=== PATIENT | male | born 1935 | race Caucasian/White ===

== ENCOUNTER → 2017-05-21 08:03 | Outpatient (CLI) | payer MEDICARE, OTHER, SELFPAY | PROVIDERS: PCP Internal Medicine Adolescent Medicine; Visit Provider Internal Medicine Adolescent Medicine | DX: I48.91 Unspecified atrial fibrillation (principal); I10 Essential (primary) hypertension | CPT/HCPCS: 36415; 80053; 80061; 84153; 84443; 85025; 85610 ==

== ENCOUNTER → 2017-05-21 08:23 | Outpatient (POV) | payer MEDICARE, OTHER, SELFPAY ==
[2017-05-21 08:59] LABS: INR 1.31 (0.9-1.1); Prothrombin Time 14.2 seconds (9.4-11.8)
[2017-05-21 09:14] LABS: Basophils % 0.6 % (0.1-2.0); Eosinophils # 0.2 K/mm3 (0.0-0.4); Eosinophils % 4.2 % (0.1-12.0); Hematocrit 39.1 % (42.0-52.0); Hemoglobin 12.8 g/dL (14.1-18.0); Lymphocytes # 0.9 K/mm3 (0.7-4.5); Lymphocytes % 16.4 K/mm3 (10-50); Mean Corpuscular HGB Conc 32.8 g/dL (31.8-35.4); Mean Corpuscular Hemoglobin 30.9 pg (27.0-31.2); Mean Corpuscular Volume 94.2 fl (80-94); Mean Platelet Volume 7.7 fl (7.4-10.4); Monocytes # 0.3 K/mm3 (0.1-1.0); Monocytes % 6.4 % (1.7-9.3); Neutrophils # 3.8 K/mm3 (1.8-7.8); Neutrophils % 72.3 % (37.0-80.0); Platelet Count 212 K/mm3 (142-424); Red Blood Count 4.15 M/mm3 (4.60-6.20); Red Cell Distribution Width 13.5 % (11.5-17.5); White Blood Count 5.2 K/mm3 (4.8-10.8)
[2017-05-21 10:12] LABS: Alanine Aminotransferase 29 U/L (12-78); Albumin Level 3.4 gm/dL (3.4-5.0); Albumin/Globulin Ratio 1.1 (1.1-1.8); Alkaline Phosphatase 96 U/L (46-116); Anion Gap 9.3 mEq/L (5-15); Aspartate Amino Transferase 17 U/L (15-37); Bilirubin,Total 0.3 mg/dL (0.2-1.0); Blood Urea Nitrogen 17 mg/dL (7-18); Calcium 8.9 mg/dL (8.5-10.1); Carbon Dioxide 30 mmol/L (21.0-32.0); Chloride 104 mmol/L (98-107); Chol/HDL Ratio 3.8 (1-3.5); Cholesterol 200 mg/dL (140-200); Creatinine,Serum 0.93 mg/dL (0.70-1.30); Estimated Glomerular Filt Rate 78 ml/min (>60); GFR (African American) 94 ML/MIN (>60); Globulin 3.2 gm/dl (1.3-3.2); Glucose 132 mg/dL (74-106); HDL Cholesterol 53 mg/dL (27-67); LDL Cholesterol 86 mg/dL (0-130); Potassium 4.3 mmoL/L (3.5-5.1); Prostate Specific Ag, Diagnost 0 ng/mL (0.0-4.0); Sodium 139 mmol/L (136-145); Thyroid Stimulating Hormone 1.57 uIU/ml (0.358-3.740); Total Protein,Serum 6.6 gm/dL (6.4-8.2); Triglycerides 306 mg/dL (30-200); VLDL Cholesterol 61 mg/dL (0-40)
== END ==
PROVIDERS: Family Provider Internal Medicine Adolescent Medicine; PCP Internal Medicine Adolescent Medicine; Visit Provider Physician Assistant
DX: I48.91 Unspecified atrial fibrillation (principal); R97.20 Elevated prostate specific antigen [PSA]; I10 Essential (primary) hypertension
CPT/HCPCS: 36415; 80053; 80061; 84153; 84443; 85025; 85610

== ENCOUNTER → 2017-10-12 08:24 | Outpatient (CLI) | payer MEDICARE, OTHER, SELFPAY ==
--- NOTE | 2017-10-12 08:32 | XR_ITS ---
XR hand LT min 3V HISTORY: ITS.REASON: LEFT HAND PAIN ORDERING PHYSICIAN: Kameron Owusu MD PATIENT AGE: 82 years COMPARISON: None FINDINGS: No fracture or dislocation. No lytic or blastic change. There is normal mineralization.. Moderate to severe osteoarthritic changes are present at the first metacarpal phalangeal joint. Subcortical cystic changes are present at the proximal aspect of the proximal phalanx of the thumb. 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
[2017-10-12 10:00] LABS: Basophils % 0.3 % (0.1-2.0); Eosinophils # 0.2 K/mm3 (0.0-0.4); Eosinophils % 2.9 % (0.1-12.0); Hematocrit 45.8 % (42.0-52.0); Hemoglobin 14.2 g/dL (14.1-18.0); Lymphocytes # 0.8 K/mm3 (0.7-4.5); Lymphocytes % 14.4 K/mm3 (10-50); Mean Corpuscular HGB Conc 31.1 g/dL (31.8-35.4); Mean Corpuscular Hemoglobin 29.1 pg (27.0-31.2); Mean Corpuscular Volume 93.5 fl (80-94); Mean Platelet Volume 7.7 fl (7.4-10.4); Monocytes # 0.3 K/mm3 (0.1-1.0); Monocytes % 5.1 % (1.7-9.3); Neutrophils # 4.3 K/mm3 (1.8-7.8); Neutrophils % 77.3 % (37.0-80.0); Platelet Count 210 K/mm3 (142-424); Red Cell Distribution Width 13.8 % (11.5-17.5); White Blood Count 5.6 K/mm3 (4.8-10.8)
[2017-10-12 10:04] LABS: INR 1.49 (0.9-1.1); Prothrombin Time 15.2 seconds (9.4-11.8)
[2017-10-12 10:55] LABS: Alanine Aminotransferase 25 U/L (12-78); Albumin Level 3.6 gm/dL (3.4-5.0); Alkaline Phosphatase 99 U/L (46-116); Anion Gap 13.5 mEq/L (5-15); Aspartate Amino Transferase 17 U/L (15-37); Bilirubin,Total 0.3 mg/dL (0.2-1.0); Blood Urea Nitrogen 16 mg/dL (7-18); Calcium 9.1 mg/dL (8.5-10.1); Carbon Dioxide 27 mmol/L (21.0-32.0); Chloride 106 mmol/L (98-107); Chol/HDL Ratio 7.3 (1-3.5); Cholesterol 349 mg/dL (140-200); Creatinine,Serum 0.83 mg/dL (0.70-1.30); Estimated Glomerular Filt Rate 88 ml/min (>60); GFR (African American) 107 ML/MIN (>60); Globulin 3.5 gm/dl (1.3-3.2); Glucose 125 mg/dL (74-106); HDL Cholesterol 48 mg/dL (27-67); Potassium 4.5 mmoL/L (3.5-5.1); Sodium 142 mmol/L (136-145); Total Protein,Serum 7.1 gm/dL (6.4-8.2); Uric Acid 5.7 mg/dL (2.6-7.2)
[2017-10-12 11:00] LABS: Triglycerides 478 mg/dL (30-200)
[2017-10-12 11:43] LABS: Erythrocyte Sedimentation Rate 41 mm/hr (0-20)
== END ==
PROVIDERS: PCP Internal Medicine Adolescent Medicine; Visit Provider Internal Medicine Adolescent Medicine
DX: M79.642 Pain in left hand (principal); E78.5 Hyperlipidemia, unspecified; I48.91 Unspecified atrial fibrillation
CPT/HCPCS: 36415; 73130; 80053; 80061; 84550; 85025; 85610; 85651

== ENCOUNTER → 2017-11-09 11:40 | Outpatient (REF) | payer MEDICARE, OTHER, SELFPAY ==
[2017-11-09 14:22] LABS: INR 1.62 (0.9-1.1); Prothrombin Time 16.5 seconds (9.4-11.8)
== END ==
LOC: LAB.CARL 11:40
PROVIDERS: Visit Provider Internal Medicine Adolescent Medicine
DX: I48.91 Unspecified atrial fibrillation (principal)
CPT/HCPCS: 85610

== ENCOUNTER → 2018-01-17 09:29 | Outpatient (CLI) | payer MEDICARE, OTHER, SELFPAY ==
[2018-01-17 14:16] LABS: INR 1.17 (0.9-1.1)
== END ==
PROVIDERS: PCP Internal Medicine Adolescent Medicine; Visit Provider Internal Medicine Adolescent Medicine
DX: I48.91 Unspecified atrial fibrillation (principal)
CPT/HCPCS: 36415; 85610

== ENCOUNTER → 2018-01-25 09:52 | Outpatient (CLI) | payer MEDICARE, OTHER, SELFPAY ==
[2018-01-25 15:10] LABS: INR 1.96 (0.9-1.1); Prothrombin Time 19.8 seconds (9.4-11.8)
== END ==
PROVIDERS: PCP Internal Medicine Adolescent Medicine; Visit Provider Internal Medicine Adolescent Medicine
DX: I48.91 Unspecified atrial fibrillation (principal)
CPT/HCPCS: 36415; 85610

== ENCOUNTER → 2018-04-11 11:04 | Outpatient (CLI) | payer MEDICARE, OTHER, SELFPAY ==
[2018-04-11 14:03] LABS: Activated Partial Thrombo Time 33.3 seconds (23.6-34.0); INR 1.21 (0.9-1.1); Prothrombin Time 12.4 seconds (9.4-11.8)
== END ==
PROVIDERS: PCP Internal Medicine Adolescent Medicine; Visit Provider Internal Medicine Adolescent Medicine
DX: Z51.81 Encounter for therapeutic drug level monitoring (principal); Z79.01 Long term (current) use of anticoagulants; I48.91 Unspecified atrial fibrillation
CPT/HCPCS: 36415; 85610; 85730

== ENCOUNTER 2018-04-19 08:53 | Outpatient (CLI) | payer MEDICARE, OTHER, SELFPAY ==
[2018-04-19 11:18] LABS: PHA INR Fingerstick 1.6 (0.9-1.1)
== END 2018-04-19 11:19 | disposition home or self-care (01) ==
LOC: ACC 08:55
PROVIDERS: PCP Internal Medicine Adolescent Medicine; Visit Provider Internal Medicine Adolescent Medicine
DX: Z51.81 Encounter for therapeutic drug level monitoring (principal); Z79.01 Long term (current) use of anticoagulants
CPT/HCPCS: 85610; 99211; G0463

== ENCOUNTER 2018-05-17 09:31 | Outpatient (CLI) | payer MEDICARE, OTHER, SELFPAY | END 2018-05-17 14:25 | disposition home or self-care (01) | LOC: ACC 09:36 | PROVIDERS: PCP Internal Medicine Adolescent Medicine; Visit Provider Internal Medicine Adolescent Medicine | DX: Z51.81 Encounter for therapeutic drug level monitoring (principal); Z79.01 Long term (current) use of anticoagulants; I48.91 Unspecified atrial fibrillation | CPT/HCPCS: 85610; 99211; G0463 ==

== ENCOUNTER 2018-06-28 09:37 | Outpatient (CLI) | payer MEDICARE, OTHER, SELFPAY ==
[2018-06-28 10:32] LABS: INR 1.17 (0.9-1.1)
[2018-06-28 14:56] LABS: PHA INR Fingerstick 1.3 (0.9-1.1)
== END 2018-06-28 14:58 | disposition home or self-care (01) ==
LOC: ACC 09:38
PROVIDERS: PCP Internal Medicine Adolescent Medicine; Visit Provider Internal Medicine Adolescent Medicine
DX: Z51.81 Encounter for therapeutic drug level monitoring (principal); Z79.01 Long term (current) use of anticoagulants; I48.91 Unspecified atrial fibrillation
CPT/HCPCS: 36415; 85610; 99211; G0463

== ENCOUNTER → 2018-07-02 12:36 | Outpatient (CLI) | payer MEDICARE, OTHER, SELFPAY ==
--- NOTE | 2018-07-02 12:53 | XR_ITS ---
XR chest 2V HISTORY: ITS.REASON: x ORDERING PHYSICIAN: GRECIA Doty PATIENT AGE: 82 years COMPARISON: PA and lateral chest 06/07/2015 FINDINGS: The lung [place] are well expanded and appear clear of infiltrate. There is moderate aortic tortuosity but no cardiomegaly. There is a left-sided cardiac pacemaker and dual chamber electrodes both in good position. Again noted are multiple surgical clips in right axilla. There is mild generalized osteopenia the thoracic spine with mild degenerative changes. IMPRESSION: Nonacute chest findings
[2018-07-02 13:13] LABS: INR 1.62 (0.9-1.1); Prothrombin Time 16.5 seconds (9.4-11.8)
[2018-07-02 14:19] LABS: Alanine Aminotransferase 24 U/L (12-78); Albumin Level 3.8 gm/dL (3.4-5.0); Alkaline Phosphatase 93 U/L (46-116); Aspartate Amino Transferase 15 U/L (15-37); Bilirubin,Direct 0.1 mg/dL (0.0-0.2); Bilirubin,Indirect 0.2 mg/dL (0.0-0.9); Bilirubin,Total 0.3 mg/dL (0.2-1.0); Free T4 (Free Thyroxine) 1.02 ng/dl (0.76-1.46); Thyroid Stimulating Hormone 1.29 uIU/ml (0.358-3.740); Total Protein,Serum 7.4 gm/dL (6.4-8.2)
== END ==
PROVIDERS: PCP Internal Medicine Adolescent Medicine; Visit Provider Physician Assistant
DX: E78.5 Hyperlipidemia, unspecified (principal); I45.10 Unspecified right bundle-branch block; I48.91 Unspecified atrial fibrillation; Z51.81 Encounter for therapeutic drug level monitoring; Z79.01 Long term (current) use of anticoagulants
CPT/HCPCS: 36415; 71046; 80076; 84439; 84443; 85610

== ENCOUNTER → 2018-07-08 13:45 | Outpatient (CLI) | payer MEDICARE, OTHER, SELFPAY ==
--- NOTE | 2018-07-08 13:47 | CA_ITS ---
PROCEDURE: 2-D M-mode and color Doppler study INDICATIONS FOR THE TEST: Chest pain COPD Heart Murmur Tobacco Smoking Palpitations Fatigue Syncope Edema Hypertension+Diabetes Mellitus Rheumatic Fever SOB+CARBAJAL Obesity Hyperlipidemia+ Family History HD Additional History a-fib,pacer,rbbb PATIENT INFORMATION HEIGHT: 68 WEIGHT:201 GENDER: Male B/P:170/87 2-D/M-MODE INTERPRETATION: 2-D MEASUREMENTS OBSERVED VALUES IN CMS Right Ventricular Dimension (RVDd) 2.0 Interventricular Septum (Thickness)(IVsd) 1.2 Left Ventricular Internal Dimensions(LVIDd) 5.9 Left Ventricular Posterior Wall (Thickness)(LVPWd) 1.0 Aortic Root 2.5 Aortic Cusp Separation 2.1 Left Atrial Dimensions (LAD) 4.8 2D 1. Left atrium is moderately enlarged, left ventricle is normal size, mild concentric left ventricular hypertrophy, visually estimated ejection fraction 50% with no regional wall motion abnormality. 2. The right atrium and right ventricle are qualitatively moderately enlarged, there is a pacemaker lead seen in the right ventricle, contractility of the right ventricle is normal. 3. The aortic valve is minimally thickened and fibrosed. 4. The mitral and tricuspid valve leaflets are minimally thickened 5. The pulmonic valve is poorly present. 6. No significant pericardial effusion noted. DOPPLER INTERROGATION: Doppler interrogation of the aortic, mitral and tricuspid valvular presence of mild mitral and tricuspid regurgitation, tricuspid regurgitation jet velocity is inadequate for calculation of the right ventricular systolic pressure, diastolic parameters are inconclusive CONCLUSION: 1. Moderate biatrial enlargement, normal left ventricular size, mild concentric left ventricular hypertrophy, visually estimated ejection fraction approximately 50% with no regional wall motion abnormality. 2. Moderately enlarged right ventricle with normal contractility. 3. Mild mitral and tricuspid regurgitation 4. No significant pericardial effusion noted.
== END ==
PROVIDERS: PCP Internal Medicine Adolescent Medicine; Visit Provider Physician Assistant
DX: I25.10 Atherosclerotic heart disease of native coronary artery without angina pectoris (principal)
CPT/HCPCS: 93306

== ENCOUNTER 2018-07-24 09:45 | Outpatient (CLI) | payer MEDICARE, OTHER, SELFPAY ==
[2018-07-24 14:07] LABS: PHA INR Fingerstick 2.7 (0.9-1.1)
== END 2018-07-24 14:09 | disposition home or self-care (01) ==
LOC: ACC 09:46
PROVIDERS: PCP Internal Medicine Adolescent Medicine; Visit Provider Internal Medicine Adolescent Medicine
DX: Z51.81 Encounter for therapeutic drug level monitoring (principal); Z79.01 Long term (current) use of anticoagulants; I48.91 Unspecified atrial fibrillation
CPT/HCPCS: 85610; 99211; G0463

== ENCOUNTER 2018-08-14 09:23 | Outpatient (CLI) | payer MEDICARE, OTHER, SELFPAY ==
[2018-08-14 12:07] LABS: PHA INR Fingerstick 2.4 (0.9-1.1)
== END 2018-08-14 14:59 | disposition home or self-care (01) ==
LOC: ACC 09:24
PROVIDERS: PCP Internal Medicine Adolescent Medicine; Visit Provider Internal Medicine Adolescent Medicine
DX: Z51.81 Encounter for therapeutic drug level monitoring (principal); Z79.01 Long term (current) use of anticoagulants; I48.91 Unspecified atrial fibrillation
CPT/HCPCS: 85610; 99211; G0463

== ENCOUNTER 2018-09-25 09:36 | Outpatient (CLI) | payer MEDICARE, OTHER, SELFPAY ==
[2018-09-25 11:37] LABS: PHA INR Fingerstick 1.9 (0.9-1.1)
== END 2018-09-25 11:39 | disposition home or self-care (01) ==
LOC: ACC 09:37
PROVIDERS: PCP Internal Medicine Adolescent Medicine; Visit Provider Internal Medicine Adolescent Medicine
DX: Z51.81 Encounter for therapeutic drug level monitoring (principal); Z79.01 Long term (current) use of anticoagulants; I48.91 Unspecified atrial fibrillation
CPT/HCPCS: 85610; 99211; G0463

== ENCOUNTER → 2018-10-10 11:34 | Outpatient (CLI) | payer MEDICARE, OTHER, SELFPAY ==
--- NOTE | 2018-10-10 11:49 | XR_ITS ---
XR elbow RT min 3V HISTORY: ITS.REASON: RIGHT ELBOW PAIN ORDERING PHYSICIAN: Saroj Ayoub MD PATIENT AGE: 83 years COMPARISON: None FINDINGS: No acute fracture or dislocation is evident. There is some soft tissue calcification along the lateral epicondylar region which could be result of old injury. Soft tissue swelling is present along the medial epicondyle and posterior distal humerus area. No displaced fat pads are apparent. IMPRESSION: Soft tissue swelling along the medial and posterior aspect of the distal humerus which could be inflammatory/infectious or related to bursitis.
[2018-10-10 11:56] LABS: Basophils % 0.4 % (0.1-2.0); Eosinophils # 0.5 K/mm3 (0.0-0.4); Eosinophils % 7.2 % (0.1-12.0); Hematocrit 37.1 % (42.0-52.0); Hemoglobin 11.7 g/dL (14.1-18.0); Mean Corpuscular HGB Conc 31.5 g/dL (31.8-35.4); Mean Corpuscular Volume 91.9 fl (80-94); Mean Platelet Volume 8.9 fl (7.4-10.4); Monocytes # 0.6 K/mm3 (0.1-1.0); Monocytes % 7.9 % (1.7-9.3); Neutrophils # 5.1 K/mm3 (1.8-7.8); Neutrophils % 70.5 % (37.0-80.0); Platelet Count 217 K/mm3 (142-424); Red Blood Count 4.03 M/mm3 (4.60-6.20); Red Cell Distribution Width 13.6 % (11.5-17.5); White Blood Count 7.2 K/mm3 (4.8-10.8)
[2018-10-10 15:41] LABS: Alanine Aminotransferase 22 U/L (12-78); Albumin Level 3.1 gm/dL (3.4-5.0); Albumin/Globulin Ratio 0.9 (1.1-1.8); Alkaline Phosphatase 93 U/L (46-116); Aspartate Amino Transferase 19 U/L (15-37); Bilirubin,Total 0.3 mg/dL (0.2-1.0); Blood Urea Nitrogen 24 mg/dL (7-18); Calcium 8.6 mg/dL (8.5-10.1); Carbon Dioxide 25 mmol/L (21.0-32.0); Chloride 105 mmol/L (98-107); Creatinine,Serum 0.86 mg/dL (0.70-1.30); Estimated Glomerular Filt Rate 85 ml/min (>60); GFR (African American) 103 ML/MIN (>60); Globulin 3.3 gm/dl (1.3-3.2); Glucose 95 mg/dL (74-106); Sodium 141 mmol/L (136-145); Total Protein,Serum 6.4 gm/dL (6.4-8.2); Uric Acid 6.3 mg/dL (2.6-7.2)
[2018-10-10 16:56] LABS: Erythrocyte Sedimentation Rate 64 mm/hr (0-20)
== END ==
PROVIDERS: Visit Provider Internal Medicine Adolescent Medicine
DX: M25.521 Pain in right elbow (principal)
CPT/HCPCS: 36415; 73080; 80053; 84550; 85025; 85651

== ENCOUNTER 2018-10-23 09:31 | Outpatient (CLI) | payer MEDICARE, OTHER, SELFPAY ==
[2018-10-23 16:08] LABS: PHA INR Fingerstick 1.9 (0.9-1.1)
== END 2018-10-23 16:10 | disposition home or self-care (01) ==
LOC: ACC 09:33
PROVIDERS: PCP Internal Medicine Adolescent Medicine; Visit Provider Internal Medicine Adolescent Medicine
DX: Z51.81 Encounter for therapeutic drug level monitoring (principal); Z79.01 Long term (current) use of anticoagulants; I48.91 Unspecified atrial fibrillation
CPT/HCPCS: 85610; 99211; G0463

== ENCOUNTER 2018-11-19 08:54 | Outpatient (CLI) | payer MEDICARE, OTHER, SELFPAY ==
[2018-11-19 14:38] LABS: PHA INR Fingerstick 1.8 (0.9-1.1)
== END 2018-11-19 14:41 | disposition home or self-care (01) ==
LOC: ACC 08:55
PROVIDERS: PCP Internal Medicine Adolescent Medicine; Visit Provider Internal Medicine Adolescent Medicine
DX: Z51.81 Encounter for therapeutic drug level monitoring (principal); Z79.01 Long term (current) use of anticoagulants; I48.91 Unspecified atrial fibrillation
CPT/HCPCS: 85610; 99211; G0463

== ENCOUNTER 2018-11-20 09:00 | Outpatient (RCR) | payer MEDICARE, OTHER, SELFPAY ==
--- NOTE | 2018-10-22 12:11 | HMH.PTOPEV ---
PT Outpatient Evaluation Rehab PT Outpatient Evaluation Start: 10/22/18 09:55 Freq: Status: Active Protocol: Document 10/22/18 10:46 PDESEROUX (Rec: 10/22/18 12:11 [email or web address] [id number]) Electronically Signed By Nithin Lim, PT 10/22/18 10:46 Outpatient Therapy Subjective History Subjective History Pt. is a 83 year old male who presents to outpatient PT for complaints of subacute RUE pain(most severe in elbow) for 2 months of insidious onset. Pt. reports having gout 5 years ago in the same elbow that had sympom relief with the medications he was taking. Pt. reports having an X-ray of his R elbow, but no injections . Pt. reports worse pain in his elbow, but the pain travels up to my shoulder and down to my hand. Current medications include Ranitidine , Carvedilol, Dicyclonine, Furosemide, Finasteride, Amiodarone, Donepizil, Simvastatin, Warfarin, and Tamsulosin. PMH includes pacemaker and cardiac catheterizations. Chief Complaint Pain Symptom Type Ache,Dull,Shooting Symptoms Relieved By Rest/Positioning,OTC Meds Symptoms Aggravated By Lifting Prior Functional Limitations None Current Functional Limitations Reaching,Lifting,Housework, Dressing,Driving Symptom Description Constant but Variable Level of pain today (0-10) 3 Pain scale - at its best (0-10) 2 Pain scale - at its worst (0-10) 6 Cervical Eval Posture Head/C-Spine Posture Sitting Position Flexed,C-Spine Flattened Head/C-Spine Posture Standing Position Flexed,C-Spine Flattened Passive Joint Mobility Cervical PIVM Dec: R OA L OA R AA L AA R C2/3 L C2/3 R C3/4 L C3/4 R C4/5 L C4/5 R C5/6 L C5/6
== END 2018-12-04 11:31 | disposition home or self-care (01) ==
LOC: PT.CARL 09:00
PROVIDERS: Visit Provider Internal Medicine Adolescent Medicine
DX: M25.521 Pain in right elbow (principal)
CPT/HCPCS: 97012; 97035; 97110; 97140; 97163

== ENCOUNTER 2018-12-11 09:30 | Outpatient (CLI) | payer MEDICARE, OTHER, SELFPAY | END 2018-12-11 14:01 | disposition home or self-care (01) | LOC: ACC 09:31 | PROVIDERS: PCP Internal Medicine Adolescent Medicine; Visit Provider Internal Medicine Adolescent Medicine | DX: Z51.81 Encounter for therapeutic drug level monitoring (principal); Z79.01 Long term (current) use of anticoagulants; I48.91 Unspecified atrial fibrillation | CPT/HCPCS: 85610; 99211; G0463 ==

== ENCOUNTER 2019-01-08 09:26 | Outpatient (CLI) | payer MEDICARE, OTHER, SELFPAY | END 2019-01-08 15:33 | disposition home or self-care (01) | LOC: ACC 09:27 | PROVIDERS: PCP Internal Medicine Adolescent Medicine; Visit Provider Internal Medicine Adolescent Medicine | DX: Z51.81 Encounter for therapeutic drug level monitoring (principal); Z79.01 Long term (current) use of anticoagulants; I48.91 Unspecified atrial fibrillation | CPT/HCPCS: 85610; 99211; G0463 ==

== ENCOUNTER → 2019-01-14 12:22 | Outpatient (CLI) | payer MEDICARE, OTHER, SELFPAY ==
[2019-01-14 14:01] LABS: Alanine Aminotransferase 24 U/L (12-78); Albumin Level 3.4 gm/dL (3.4-5.0); Alkaline Phosphatase 93 U/L (46-116); Aspartate Amino Transferase 17 U/L (15-37); Bilirubin,Direct 0.1 mg/dL (0.0-0.2); Bilirubin,Indirect 0.2 mg/dL (0.0-0.9); Bilirubin,Total 0.3 mg/dL (0.2-1.0); Free Thyroxine Index 3.2 ug/dL (5.93-13.13); T4 (Thyroxine) 8.8 ug/dl (4.7-13.3); Thyroid Stimulating Hormone 1.07 uIU/ml (0.358-3.740); Total Protein,Serum 6.9 gm/dL (6.4-8.2); Triiodothryronine (T3) Uptake 36 % (31-39)
== END ==
PROVIDERS: Visit Provider Urology
DX: E78.5 Hyperlipidemia, unspecified (principal); I45.10 Unspecified right bundle-branch block; I48.91 Unspecified atrial fibrillation; R06.02 Shortness of breath; R07.9 Chest pain, unspecified; Z79.01 Long term (current) use of anticoagulants; Z79.899 Other long term (current) drug therapy
CPT/HCPCS: 36415; 80076; 84436; 84443; 84479

== ENCOUNTER → 2019-01-21 10:47 | Outpatient (CLI) | payer MEDICARE, OTHER, SELFPAY ==
--- NOTE | 2019-01-21 | CA_ITS ---
APPROVED REPORT Exam: Pharmacologic Technologist: eDb Campuzano Ht: 5 ft 8 in Wt: 200 lbs BSA: 2.04 m2 HR: 70 bpm BP: 173/90 mmHg Indications: Chest pain Medical History Medications: Amiodarone,,,,, Furosemide (LASIX),,,,, Warfarin,,,,, Simvastatin,,,,, Ranitidine,,,,, Carvedilol,,,,, TAMSULOSIN,,,,, DONEPEZIL,,,,, Finasteride,,,,, Dcyclomine,,,,, Stress Test Details Test: LEXISCAN HR Resting HR: 70 bpm Max Heart Rate (APMHR): 136 bpm Max HR Achieved: 74 bpm Target HR (85% APMHR): 115 bpm % of APMHR: 54 Recovery HR: 70 bpm BP Resting BP: 173.0/90.0 mmHg Max BP: 199.0/87.0 mmHg Recovery BP: 149.0/75.0 mmHg ECG Clinical Exercise duration: 04:00 min Highest Stage Achieved: Stress ECG Conclusion Resting ECG: Normal sinus rhythm, right bundle branch block, first degree AV block. Symptoms: Malaise, mild nausea. No chest pain. Arrhythmias/Ectopy: None ST-T Changes: No significant changes. Conclusion: Unremarkable Lexiscan stress. Myoview images reported separately. Electronically signed by : Sunny Baldwin, 01/22/2019 15:05:16
--- NOTE | 2019-01-21 10:49 | NM_ITS ---
APPROVED REPORT Exam: Nuclear Stress Test Indication: Chest pain, HTN, High cholesterol, Family history, Pacemaker Patient Location: Outpatient Stress Tech: Deb Campuzano DC Tech:Hienwayne Khoury, MCKAYT, RT (R)(N) Ht: 5 ft 8 in Wt: 200 lbs HR: 70 bpm BP: 173/90 mmHg BSA: 2.04 m2 BMI: 30.4 History: Chest pain, HTN, High cholesterol, Family history, Pacemaker Procedure: Patient received a 0.4 mg of intravenous Lexiscan, resting heart rate 70 bpm, resting blood pressure 173/90 mmHg, with Lexiscan maximum heart rate achived was 71 bpm which is % of the maximum predicted heart rate and blood pressure was 123/58 mmHg. With Lexiscan, patient denied any complaint of chest pain. Cardiac Stress and Resting SPECT Images: Cardiac Stress and Resting SPECT images were obtained using technetium 99m Myoview 32.5 mCi stress and 10.92 mCi at rest. Ejection fraction is 48%. There is global hypokinesia. There is a fixed defect involving the inferior wall and inferolateral area extending to the apex in the inferolateral area. There is a small fixed defect in the apical septal area. Conclusion: Low ejection fraction of 48% with global hypokinesia Fixed defect in the inferior wall, inferolateral wall extending into the apex, and small fixed defect in the apical septal area consistent with infarction No reversible defects evident Electronically signed by : Britton Mcclellan MD 01/22/2019 09:41:19
--- NOTE | 2019-01-21 11:07 | HMH.ITSHM ---
Current Home Medications as stated by this patient Hernando Rivera JR or tax compliance representative. []WARFARIN TAMSULOSIN SIMVASTATIN RANITIDINE FUROSEMIDE FINASTERIDE DONEPEZIL DICYCLOMINE CARVEDILOL AMIODARONE
== END ==
PROVIDERS: PCP Internal Medicine Adolescent Medicine; Visit Provider Urology
DX: R07.9 Chest pain, unspecified; R06.02 Shortness of breath; E78.2 Mixed hyperlipidemia; I45.10 Unspecified right bundle-branch block; Z79.01 Long term (current) use of anticoagulants; Z79.899 Other long term (current) drug therapy
CPT/HCPCS: 78452; 93017; A9502; J2785

== ENCOUNTER → 2019-02-04 12:44 | Outpatient (CLI) | payer MEDICARE, OTHER, SELFPAY ==
--- NOTE | 2019-02-04 12:51 | XR_ITS ---
PROCEDURE: XR CHEST 2V CLINICAL HISTORY: amiodarone therapy. Follow-up amiodarone on therapy, previous smoker, heart disease COMPARISON: CXR CHEST(2 VIEWS-NOT PORTABLE) from 02/09/2015 CXR CHEST(2 VIEWS-NOT PORTABLE) from 06/07/2015 CXR2V XR chest 2V from 07/02/2018 FINDINGS: Bipolar pacemaker is present from left subclavian approach. Normal heart size. Coronary artery stent noted Minimal atelectatic or fibrotic change in the left lung base. The remaining lungs are clear. Surgical clips are present in the right axillary region. No acute bony abnormalities. IMPRESSION: No acute finding. No convincing evidence of amiodarone lung toxicity Dictated by: Britton Mcclellan MD 02/04/2019 13:43 Electronically signed by Britton Mcclellan MD in [place] 02/04/2019 13:43
== END ==
PROVIDERS: PCP Internal Medicine Adolescent Medicine; Visit Provider Internal Medicine
DX: E78.5 Hyperlipidemia, unspecified (principal); I45.10 Unspecified right bundle-branch block; I48.91 Unspecified atrial fibrillation; R06.02 Shortness of breath; R07.9 Chest pain, unspecified; R94.31 Abnormal electrocardiogram [ECG] [EKG]; Z79.01 Long term (current) use of anticoagulants; Z79.899 Other long term (current) drug therapy
CPT/HCPCS: 71046

== ENCOUNTER 2019-02-05 09:30 | Outpatient (CLI) | payer MEDICARE, OTHER, SELFPAY ==
[2019-02-05 10:14] LABS: PHA INR Fingerstick 2.3 (0.9-1.1)
== END 2019-02-05 10:17 | disposition home or self-care (01) ==
LOC: ACC 09:32
PROVIDERS: PCP Internal Medicine Adolescent Medicine; Visit Provider Internal Medicine Adolescent Medicine
DX: Z51.81 Encounter for therapeutic drug level monitoring (principal); Z79.01 Long term (current) use of anticoagulants; I48.91 Unspecified atrial fibrillation
CPT/HCPCS: 85610; 99211; G0463

== ENCOUNTER 2019-03-19 09:23 | Outpatient (CLI) | payer MEDICARE, OTHER, SELFPAY ==
[2019-03-19 10:23] LABS: PHA INR Fingerstick 2.6 (0.9-1.1)
== END 2019-03-19 10:25 | disposition home or self-care (01) ==
LOC: ACC 09:24
PROVIDERS: PCP Internal Medicine Adolescent Medicine; Visit Provider Internal Medicine Adolescent Medicine
DX: Z51.81 Encounter for therapeutic drug level monitoring (principal); Z79.01 Long term (current) use of anticoagulants
CPT/HCPCS: 85610; 99211; G0463

== ENCOUNTER 2019-04-30 08:48 | Outpatient (CLI) | payer MEDICARE, OTHER, SELFPAY | END 2019-04-30 11:09 | disposition home or self-care (01) | LOC: ACC 08:48 | PROVIDERS: PCP Internal Medicine Adolescent Medicine; Visit Provider Internal Medicine Adolescent Medicine | DX: Z51.81 Encounter for therapeutic drug level monitoring (principal); Z79.01 Long term (current) use of anticoagulants; I48.91 Unspecified atrial fibrillation | CPT/HCPCS: 85610; 99211; G0463 ==

== ENCOUNTER 2019-06-11 08:52 | Outpatient (CLI) | payer MEDICARE, OTHER, SELFPAY ==
[2019-06-11 11:58] LABS: PHA INR Fingerstick 1.7 (0.9-1.1)
== END 2019-06-11 12:08 | disposition home or self-care (01) ==
LOC: ACC 08:55
PROVIDERS: PCP Internal Medicine Adolescent Medicine; Visit Provider Internal Medicine Adolescent Medicine
DX: Z79.01 Long term (current) use of anticoagulants (principal); I48.91 Unspecified atrial fibrillation; Z51.81 Encounter for therapeutic drug level monitoring
CPT/HCPCS: 85610; 99211; G0463

== ENCOUNTER 2019-07-21 08:59 | Outpatient (CLI) | payer MEDICARE, OTHER, SELFPAY ==
[2019-07-21 10:49] LABS: PHA INR Fingerstick 1.7 (0.9-1.1)
== END 2019-07-21 10:51 | disposition home or self-care (01) ==
LOC: ACC 08:59
PROVIDERS: PCP Internal Medicine Adolescent Medicine; Visit Provider Internal Medicine Adolescent Medicine
DX: Z51.81 Encounter for therapeutic drug level monitoring (principal); Z79.01 Long term (current) use of anticoagulants; I48.91 Unspecified atrial fibrillation
CPT/HCPCS: 85610; 99211; G0463

== ENCOUNTER 2019-08-11 14:05 | Outpatient (CLI) | payer MEDICARE, OTHER, SELFPAY ==
[2019-08-11 14:27] LABS: PHA INR Fingerstick 2.8 (0.9-1.1)
== END 2019-08-11 14:30 | disposition home or self-care (01) ==
LOC: ACC 14:07
PROVIDERS: PCP Internal Medicine Adolescent Medicine; Visit Provider Internal Medicine Adolescent Medicine
DX: Z79.01 Long term (current) use of anticoagulants (principal)
CPT/HCPCS: 85610; 99211; G0463

== ENCOUNTER → 2019-08-11 15:24 | Outpatient (CLI) | payer MEDICARE, OTHER, SELFPAY ==
[2019-08-11 18:19] LABS: Prostate Specific Ag, Diagnost < 0.064 ng/ml (0.0-4.0)
== END ==
PROVIDERS: Visit Provider Urology
DX: C61 Malignant neoplasm of prostate (principal); Z51.81 Encounter for therapeutic drug level monitoring; Z79.01 Long term (current) use of anticoagulants
CPT/HCPCS: 36415; 84153; 85610; 99211; G0463

== ENCOUNTER 2019-09-15 09:28 | Outpatient (CLI) | payer MEDICARE, OTHER, SELFPAY ==
[2019-09-15 10:07] LABS: PHA INR Fingerstick 2.2 (0.9-1.1)
== END 2019-09-15 10:25 | disposition home or self-care (01) ==
LOC: ACC 09:31
PROVIDERS: PCP Internal Medicine Adolescent Medicine; Visit Provider Internal Medicine Adolescent Medicine
DX: Z51.81 Encounter for therapeutic drug level monitoring (principal); Z79.01 Long term (current) use of anticoagulants; I48.91 Unspecified atrial fibrillation
CPT/HCPCS: 85610; 99211; G0463

== ENCOUNTER 2019-10-27 08:58 | Outpatient (CLI) | payer MEDICARE, OTHER, SELFPAY ==
[2019-10-27 10:28] LABS: PHA INR Fingerstick 2.9 (0.9-1.1)
== END 2019-10-27 12:02 | disposition home or self-care (01) ==
PROVIDERS: PCP Internal Medicine Adolescent Medicine; Visit Provider Internal Medicine Adolescent Medicine
DX: Z51.81 Encounter for therapeutic drug level monitoring (principal); Z79.01 Long term (current) use of anticoagulants; I48.91 Unspecified atrial fibrillation
CPT/HCPCS: 85610; 99211; G0463

== ENCOUNTER → 2019-11-03 13:46 | Outpatient (CLI) | payer MEDICARE, OTHER, SELFPAY ==
--- NOTE | 2019-11-03 13:59 | XR_ITS ---
PROCEDURE: XR CHEST 2V CLINICAL HISTORY: amiodarone therapy Heart disease COMPARISON: CXR CHEST(2 VIEWS-NOT PORTABLE) from 06/07/2015 CXR2V XR chest 2V from 07/02/2018 XR CHEST 2V from 02/04/2019 FINDINGS: Normal heart size. Bipolar pacemaker is present from left subclavian approach. There is mild tortuosity of the descending thoracic aorta. The lungs are clear without infiltrates, suspicious nodules, or pleural effusions. Surgical clips are present in the right axillary region. Degenerative changes thoracic spine IMPRESSION: No change with no acute finding Dictated by: Britton Mcclellan MD 11/03/2019 14:22 Electronically signed by Britton Mcclellan MD in [facility] 11/03/2019 14:22
[2019-11-03 14:51] LABS: Alanine Aminotransferase 21 U/L (12-78); Alkaline Phosphatase 102 U/L (38-126); Aspartate Amino Transferase 27 U/L (17-59); Bilirubin,Direct 0.1 mg/dl (0.0-0.4); Bilirubin,Indirect 0.3 mg/dL (0.0-0.9); Bilirubin,Total 0.4 mg/dl (0.2-1.3); Bilirubin,Unconjugated 0.3 mg/dL (0.0-1.1); Total Protein,Serum 7.1 g/dl (6.3-8.2)
[2019-11-03 15:09] LABS: Free T4 (Free Thyroxine) 1.29 ng/dl (0.78-2.19)
[2019-11-03 15:23] LABS: Thyroid Stimulating Hormone 1.54 uIU/mL (0.465-4.68)
== END ==
PROVIDERS: Visit Provider Urology
DX: E78.5 Hyperlipidemia, unspecified (principal); I48.91 Unspecified atrial fibrillation; Z79.01 Long term (current) use of anticoagulants; Z79.899 Other long term (current) drug therapy; Z95.0 Presence of cardiac pacemaker
CPT/HCPCS: 36415; 71046; 80076; 84439; 84443

== ENCOUNTER 2019-12-10 08:59 | Outpatient (CLI) | payer MEDICARE, OTHER, SELFPAY | END 2019-12-10 10:47 | disposition home or self-care (01) | LOC: ACC 09:00 | PROVIDERS: PCP Internal Medicine Adolescent Medicine; Visit Provider Internal Medicine Adolescent Medicine | DX: Z79.01 Long term (current) use of anticoagulants (principal) | CPT/HCPCS: 85610; 99211; G0463 ==

== ENCOUNTER 2020-01-19 09:00 | Outpatient (RCR) | payer MEDICARE, OTHER, SELFPAY ==
--- NOTE | 2019-12-22 10:13 | HMH.PTOPEV ---
PT Outpatient Evaluation Rehab PT Outpatient Evaluation Start: 12/22/19 09:26 Freq: Status: Active Protocol: Document 12/22/19 09:26 PDESEROUX (Rec: 12/22/19 10:12 [email or web address] [id number]) Electronically Signed By Nithin Lim, [facility] 12/22/19 09:26 Outpatient Therapy Subjective History Subjective History Pt. is a 84 year old male who presents to Outpatient PT clinic w/ complaints of chronic and activtiy dependent LB and bilateral anterior thigh P! of insidious onset for 1 month. Pt. reports symptoms( tenderness ache) in LB worsen w/ standing and washing the dishes. Pt. reports symptoms( burning) in BLE anterior thigh worsen w/ walking his dog, but states this symptom has improved. Pt. denies having injections nor recent diagnostic imaging for current pathology. Pt. denies symptoms in BLE radiating inferiorly to knees. Current medications include Tamsulosin , Furosemide, Dicyclomine, Amiodarone, Finasteride, Carvedilol, Warfarin, Domeprazil, Melatonin, and Loperamide. PMH includes Tonsillectomy, Lymphectomy(L axilla), Appendectomy, Hypertension, Hyperlipidemia, Pacemaker, hx. of Prostate cancer. Chief Complaint Pain,Weakness Symptom Type Ache,Burning Symptoms Relieved By Rest/Positioning Symptoms Aggravated By Standing,Physical Activity, Walking Prior Functional Limitations None Current Functional Limitations Housework,Standing,Squatting, Recreation Activity,Walking Symptom Description Activity Dependent Level of pain today (0-10) 0 Pain scale - at its best (0-10) 0 Pain scale - at its worst (0-10) 3 Lumbopelvic Eval Posture Thoracic Spine Posture Standing Position Increased Kyphosis Lumbar Spine Posture Standing Position Flattened Assistive device Assistive Devices None / NA Gait Observation General Gait Pattern Observation No Deviations/Normal Palapation tenderness bila
== END 2020-02-02 11:00 | disposition home or self-care (01) ==
LOC: PT.CARL 09:00
PROVIDERS: PCP Internal Medicine Adolescent Medicine; Visit Provider Nurse Practitioner Family
DX: M54.5 Low back pain (principal); M62.81 Muscle weakness (generalized); G89.29 Other chronic pain
CPT/HCPCS: 97110; 97163

== ENCOUNTER → 2020-02-19 16:04 | Outpatient (CLI) | payer MEDICARE, OTHER, SELFPAY ==
[2020-02-19 19:07] LABS: Prostate Specific Ag, Diagnost < 0.064 ng/ml (0.0-4.0)
== END ==
PROVIDERS: Visit Provider Urology
DX: C61 Malignant neoplasm of prostate (principal)
CPT/HCPCS: 36415; 84153

== ENCOUNTER 2020-04-19 09:08 | Outpatient (CLI) | payer MEDICARE, OTHER, SELFPAY ==
[2020-04-19 10:27] LABS: PHA INR Fingerstick 1.5 (0.9-1.1)
== END 2020-04-19 10:29 | disposition home or self-care (01) ==
LOC: ACC 09:10
PROVIDERS: PCP Internal Medicine Adolescent Medicine; Visit Provider Internal Medicine Adolescent Medicine
DX: Z51.81 Encounter for therapeutic drug level monitoring (principal); Z79.01 Long term (current) use of anticoagulants; I48.91 Unspecified atrial fibrillation
CPT/HCPCS: 85610; 99211; G0463

== ENCOUNTER 2020-05-04 11:01 | Outpatient (CLI) | payer MEDICARE, OTHER, SELFPAY ==
--- NOTE | 2020-05-04 11:49 | XR_ITS ---
PROCEDURE: XR CHEST 2V CLINICAL HISTORY: on amiodarone Heart disease, COMPARISON: CR CXR2V XR chest 2V from 07/02/2018 CR XR CHEST 2V from 02/04/2019 CR XR CHEST 2V from 11/03/2019 FINDINGS: There is a bipolar pacemaker present from left subclavian approach. The lungs are clear without infiltrates, suspicious nodules, or pleural effusions. Minimal atelectasis or fibrotic change present in the left lung base which appear stable Surgical clips are present in the right axillary region. IMPRESSION: No change with no acute finding Dictated by: Britton Mcclellan MD 05/04/2020 12:51 Britton Mcclellan MD in [facility] 05/04/2020 12:51
[2020-05-04 12:29] LABS: Eosinophils # 0.4 K/mm3 (0.0-0.4); Eosinophils % 9.5 % (0.1-12.0); Hematocrit 44.1 % (42.0-52.0); Hemoglobin 14.4 g/dL (14.1-18.0); Lymphocytes % 22.5 % (10-50); Mean Corpuscular HGB Conc 32.7 g/dL (31.8-35.4); Mean Corpuscular Hemoglobin 32.1 pg (27.0-31.2); Mean Corpuscular Volume 98.3 fl (80-94); Mean Platelet Volume 7.7 fl (7.4-10.4); Monocytes # 0.3 K/mm3 (0.1-1.0); Monocytes % 6.5 % (1.7-9.3); Neutrophils # 2.7 K/mm3 (1.8-7.8); Neutrophils % 60.5 % (37.0-80.0); Platelet Count 243 K/mm3 (142-424); Red Blood Count 4.49 M/mm3 (4.60-6.20); Red Cell Distribution Width 13.9 % (11.5-17.5); White Blood Count 4.4 K/mm3 (4.8-10.8)
[2020-05-04 12:58] LABS: Alanine Aminotransferase 16 U/L (12-78); Albumin Level 4.3 g/dl (3.5-5.0); Alkaline Phosphatase 80 U/L (38-126); Anion Gap 9.7 mEq/L (5-15); Aspartate Amino Transferase 23 U/L (17-59); Bilirubin,Direct 0.2 mg/dl (0.0-0.4); Bilirubin,Indirect 0.2 mg/dL (0.0-0.9); Bilirubin,Total 0.4 mg/dl (0.2-1.3); Bilirubin,Unconjugated 0.2 mg/dL (0.0-1.1); Blood Urea Nitrogen 20 mg/dl (9-20); Calcium 9.5 mg/dl (8.4-10.2); Carbon Dioxide 32 mmol/L (22.0-30.0); Chloride 102 mmol/L (98-107); Cholesterol 304 mg/dl (140-200); Estimated Glomerular Filt Rate 64 ml/min (>60); GFR (African American) 77 ML/MIN (>60); Glucose 111 mg/dl (74-100); HDL Cholesterol 61 mg/dl (40-60); Potassium 4.7 mmoL/L (3.5-5.1); Sodium 139 mmol/L (136-145); Total Protein,Serum 7.2 g/dl (6.3-8.2); Triglycerides 295 mg/dl (30-150); VLDL Cholesterol 59 mg/dL (0-40)
[2020-05-04 13:09] LABS: Direct LDL Cholesterol 179.23 mg/dL (100-129)
[2020-05-04 13:17] LABS: Free T4 (Free Thyroxine) 1.35 ng/dl (0.78-2.19)
[2020-05-04 13:48] LABS: PHA INR Fingerstick 1.5 (0.9-1.1)
== END 2020-05-04 13:57 | disposition home or self-care (01) ==
PROVIDERS: Internal Medicine Adolescent Medicine; PCP Internal Medicine Adolescent Medicine; Visit Provider Urology
DX: E78.5 Hyperlipidemia, unspecified (principal); I45.10 Unspecified right bundle-branch block; I48.91 Unspecified atrial fibrillation; R94.31 Abnormal electrocardiogram [ECG] [EKG]; Z79.01 Long term (current) use of anticoagulants; Z79.899 Other long term (current) drug therapy; Z95.0 Presence of cardiac pacemaker; Z51.81 Encounter for therapeutic drug level monitoring
CPT/HCPCS: 36415; 71046; 80048; 80061; 80076; 84439; 84443; 85025; 85610; 99211; G0463

== ENCOUNTER 2020-05-24 12:40 | Outpatient (CLI) | payer MEDICARE, OTHER, SELFPAY ==
[2020-05-24 14:26] LABS: PHA INR Fingerstick 2.6 (0.9-1.1)
== END 2020-05-24 14:28 | disposition home or self-care (01) ==
LOC: ACC 12:40
PROVIDERS: PCP Internal Medicine Adolescent Medicine; Visit Provider Internal Medicine Adolescent Medicine
DX: Z51.81 Encounter for therapeutic drug level monitoring (principal); Z79.01 Long term (current) use of anticoagulants
CPT/HCPCS: 85610; 99211; G0463

== ENCOUNTER 2020-07-27 09:38 | Outpatient (CLI) | payer MEDICARE, OTHER, SELFPAY | END 2020-07-27 11:09 | disposition home or self-care (01) | LOC: ACC 09:39 | PROVIDERS: PCP Internal Medicine Adolescent Medicine; Visit Provider Internal Medicine Adolescent Medicine | DX: Z51.81 Encounter for therapeutic drug level monitoring (principal); Z79.01 Long term (current) use of anticoagulants | CPT/HCPCS: 85610; 99211; G0463 ==

== ENCOUNTER → 2020-08-19 14:11 | Outpatient (CLI) | payer MEDICARE, OTHER, SELFPAY ==
[2020-08-19 16:58] LABS: Prostate Specific Ag, Diagnost < 0.064 ng/ml (0.0-4.0)
== END ==
PROVIDERS: Visit Provider Urology
DX: C61 Malignant neoplasm of prostate (principal)
CPT/HCPCS: 36415; 84153

== ENCOUNTER 2020-09-06 09:00 | Outpatient (CLI) | payer MEDICARE, OTHER, SELFPAY ==
[2020-09-06 10:47] LABS: PHA INR Fingerstick 2.2 (0.9-1.1)
== END 2020-09-06 10:48 | disposition home or self-care (01) ==
LOC: ACC 09:01
PROVIDERS: PCP Internal Medicine Adolescent Medicine; Visit Provider Internal Medicine Adolescent Medicine
DX: Z51.81 Encounter for therapeutic drug level monitoring (principal); Z79.01 Long term (current) use of anticoagulants; I48.91 Unspecified atrial fibrillation
CPT/HCPCS: 85610; 99211; G0463

== ENCOUNTER → 2020-10-14 09:04 | Outpatient (CLI) | payer MEDICARE, OTHER, SELFPAY ==
--- NOTE | 2020-10-14 09:13 | XR_ITS ---
PROCEDURE: XR CHEST 2V CLINICAL HISTORY: COUGH COMPARISON: CR CXR CHEST(2 VIEWS-NOT PORTABLE) from 10/08/2014 CR XR CHEST 2V from 02/04/2019 CR XR CHEST 2V from 11/03/2019 CR XR CHEST 2V from 05/04/2020 FINDINGS: Normal heart size. Bipolar pacemaker is present from left subclavian approach. Slight increased density noted along the left lower lung zone which may in part be related to pericardial fat pad however, the density is somewhat greater compared to the previous exams. Cannot exclude the possibility of superimposed infiltrate in the lingula. Thoracic kyphosis. Surgical clips are present in the right axilla IMPRESSION: Slight increased density in the left lower lung zone suggesting pericardial fat pad with superimposed atelectasis or infiltrate Dictated by: Britton Mcclellan MD 10/14/2020 10:24 Britton Mcclellan MD in [place] 10/14/2020 10:24
== END ==
PROVIDERS: PCP Internal Medicine Adolescent Medicine; Visit Provider Nurse Practitioner Family
DX: R05 Cough (principal)
CPT/HCPCS: 71046

== ENCOUNTER → 2020-11-02 10:59 | Outpatient (CLI) | payer MEDICARE, OTHER, SELFPAY ==
--- NOTE | 2020-11-02 11:04 | XR_ITS ---
PROCEDURE: XR CHEST 2V CLINICAL HISTORY: on amiodarone therapy. Cardiac dysrhythmia, shortness of breath COMPARISON: CR XR CHEST 2V from 11/03/2019 CR XR CHEST 2V from 05/04/2020 CR XR CHEST 2V from 10/14/2020 FINDINGS: There is a bipolar pacemaker present with right atrial and right ventricular leads. Good position. Normal heart size. There are stable atelectatic or fibrotic changes in the lung bases. Surgical clips are present in the right axilla. Evidence of old granulomatous disease. No acute bony abnormalities. IMPRESSION: Minimal bibasilar atelectatic or fibrotic changes. These appear stable compared to 10/14/2020. High-resolution CT may be aid for further evaluation for possible amiodarone fibrotic changes. Dictated by: Britton Mcclellan MD 11/02/2020 13:15 Britton Mcclellan MD in [place] 11/02/2020 13:15
[2020-11-02 12:34] LABS: Basophils # 0.1 K/mm3 (0-0.2); Basophils % 2.1 % (0.1-2.0); Eosinophils # 0.5 K/mm3 (0.0-0.4); Eosinophils % 7.1 % (0.1-12.0); Hematocrit 41.3 % (42.0-52.0); Hemoglobin 12.9 g/dL (14.1-18.0); Lymphocytes # 1.1 K/mm3 (0.7-4.5); Lymphocytes % 16.3 % (10-50); Mean Corpuscular HGB Conc 31.3 g/dL (31.8-35.4); Mean Corpuscular Hemoglobin 29.8 pg (27.0-31.2); Mean Platelet Volume 13.9 fl (7.4-10.4); Monocytes # 0.4 K/mm3 (0.1-1.0); Monocytes % 5.6 % (1.7-9.3); Neutrophils # 4.7 K/mm3 (1.8-7.8); Platelet Count 215 K/mm3 (142-424); Red Blood Count 4.34 M/mm3 (4.60-6.20); Red Cell Distribution Width 17.5 % (11.5-17.5); White Blood Count 6.8 K/mm3 (4.8-10.8)
[2020-11-02 13:10] LABS: Prothrombin Time 18.8 seconds (10.1-12.5)
[2020-11-02 13:19] LABS: INR 1.65 (0.9-1.1)
[2020-11-02 13:28] LABS: Alanine Aminotransferase 14 U/L (12-78); Alkaline Phosphatase 79 U/L (38-126); Anion Gap 10.8 mEq/L (5-15); Aspartate Amino Transferase 26 U/L (17-59); Bilirubin,Direct 0.5 mg/dl (0.0-0.4); Bilirubin,Indirect 0.1 mg/dL (0.0-0.9); Bilirubin,Total 0.6 mg/dl (0.2-1.3); Bilirubin,Unconjugated 0.1 mg/dL (0.0-1.1); Blood Urea Nitrogen 19 mg/dl (9-20); Calcium 8.9 mg/dl (8.4-10.2); Carbon Dioxide 31 mmol/L (22.0-30.0); Chloride 104 mmol/L (98-107); Chol/HDL Ratio 2.8 (1-3.5); Cholesterol 171 mg/dl (140-200); Estimated Glomerular Filt Rate 80 ml/min (>60); GFR (African American) 97 ML/MIN (>60); Glucose 110 mg/dl (74-100); HDL Cholesterol 62 mg/dl (40-60); Potassium 4.8 mmoL/L (3.5-5.1); Sodium 141 mmol/L (136-145); Total Protein,Serum 6.6 g/dl (6.3-8.2); Triglycerides 139 mg/dl (30-150); VLDL Cholesterol 28 mg/dL (0-40)
[2020-11-02 13:39] LABS: Direct LDL Cholesterol 75.82 mg/dL (100-129)
[2020-11-02 13:44] LABS: Free T4 (Free Thyroxine) 1.71 ng/dl (0.78-2.19)
[2020-11-02 13:58] LABS: Thyroid Stimulating Hormone 1.19 uIU/mL (0.465-4.68)
== END ==
PROVIDERS: PCP Internal Medicine Adolescent Medicine; Visit Provider Urology
DX: E78.5 Hyperlipidemia, unspecified (principal); I45.10 Unspecified right bundle-branch block; I48.91 Unspecified atrial fibrillation; R94.31 Abnormal electrocardiogram [ECG] [EKG]; Z79.01 Long term (current) use of anticoagulants; Z79.899 Other long term (current) drug therapy; Z95.0 Presence of cardiac pacemaker; Z51.81 Encounter for therapeutic drug level monitoring
CPT/HCPCS: 36415; 71046; 80048; 80061; 80076; 84439; 84443; 85025; 85610

== ENCOUNTER → 2020-11-18 14:11 | Outpatient (CLI) | payer MEDICARE, OTHER, SELFPAY ==
--- NOTE | 2020-11-18 14:11 | CT_ITS ---
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 All CT scans at the facility use one or more dose reduction, viz: automated exposure control, ma/kV adjustment per patient size (including targeted exams where dose is matched to indication, i.e. head), or iterative reconstruction technique. High-resolution inspiration images also performed FINDINGS: Bipolar cardiac pacemaker device present from left subclavian approach. Surgical clips are present in the right axilla. Coronary artery calcifications and/or stents are noted. There is normal heart size. Calcified granuloma is present within the lingula. Incidental note of mild senescent tracheal bronchial ossification. There are 2 calcified granulomas in the left lower lobe with some adjacent volume loss. Atelectasis or scarring changes are present in the left lung base. High-resolution images show no evidence of pulmonary fibrosis. Incidental note made gynecomastia IMPRESSION: 1. No evidence pulmonary fibrosis. 2. Left lower lobe atelectasis or scarring posteriorly with evidence of old granulomatous disease. Dictated by: Britton Mcclellan MD 11/19/2020 08:40 Britton Mcclellan MD in [place] 11/19/2020 08:40
== END ==
PROVIDERS: PCP Internal Medicine Adolescent Medicine; Visit Provider Urology
DX: Z79.899 Other long term (current) drug therapy (principal)
CPT/HCPCS: 71250

== ENCOUNTER 2021-02-14 10:43 | Outpatient (CLI) | payer MEDICARE, OTHER, SELFPAY ==
[2021-02-14 13:50] LABS: PHA INR Fingerstick 1.9 (0.9-1.1)
== END 2021-02-14 13:59 | disposition home or self-care (01) ==
LOC: ACC 10:44
PROVIDERS: PCP Internal Medicine Adolescent Medicine; Visit Provider Internal Medicine Adolescent Medicine
DX: Z51.81 Encounter for therapeutic drug level monitoring (principal); Z79.01 Long term (current) use of anticoagulants; I48.91 Unspecified atrial fibrillation
CPT/HCPCS: 85610; 99211; G0463

== ENCOUNTER 2021-03-07 09:07 | Outpatient (CLI) | payer MEDICARE, OTHER, SELFPAY ==
--- NOTE | 2021-03-07 09:16 | XR_ITS ---
PROCEDURE: XR FOOT WT BEARING RT 3V CLINICAL INDICATION: pain COMPARISON: No exams were available for comparison FINDINGS: No fracture or dislocation. No lytic or blastic change. There is normal mineralization. Mild osteoarthritis at the 1st MTP joint and 1st interphalangeal joint. Mild pes planus. Mildly prominent bony spur along the anterior and distal aspect of the 1st metatarsal. Other findings:None. IMPRESSION: Degenerative changes with mild pes planus Dictated by: Britton Mcclellan MD 03/07/2021 14:30 Britton Mcclellan MD in [facility] 03/07/2021 14:30
--- NOTE | 2021-03-07 09:16 | XR_ITS ---
PROCEDURE: XR FOOT WT BEARING LT 3V CLINICAL INDICATION: pain COMPARISON: No exams were available for comparison FINDINGS: Severe osteoarthritic changes are present at 1st MTP joint. Mild osteoarthritis at the 1st interphalangeal joint. Mild osteoarthritis 1st tarsal metatarsal junction. 4 mm medial displacement of the proximal phalanx of the 2nd digit. Prominent anterior osteophyte is present at the distal aspect of the 1st metatarsal. Mild osteoarthritis of the talonavicular and navicular cuneiform joint with mild pes planus. Coarse calcification is noted along the dorsal aspect of the ankle joint. Hammertoe deformity digits 2 through 4. No fracture or dislocation. No lytic or blastic change. Other findings:None. IMPRESSION: Degenerative changes as described above. Dictated by: Britton Mcclellan MD 03/07/2021 14:34 Britton Mcclellan MD in [facility] 03/07/2021 14:34
== END 2021-03-07 11:36 | disposition home or self-care (01) ==
LOC: ACC 09:10
PROVIDERS: PCP Internal Medicine Adolescent Medicine; Visit Provider Internal Medicine Adolescent Medicine
DX: M79.672 Pain in left foot (principal); M79.671 Pain in right foot; Z51.81 Encounter for therapeutic drug level monitoring; Z79.01 Long term (current) use of anticoagulants
CPT/HCPCS: 73630; 85610; 99211; G0463

== ENCOUNTER → 2021-04-28 15:29 | Outpatient (CLI) | payer MEDICARE, SELFPAY ==
[2021-04-28 15:53] LABS: Basophils # 0.1 K/mm3 (0-0.2); Basophils % 0.8 % (0.1-2.0); Eosinophils # 0.4 K/mm3 (0.0-0.4); Hemoglobin 12.1 g/dL (14.1-18.0); Mean Corpuscular HGB Conc 31.8 g/dL (31.8-35.4); Mean Corpuscular Hemoglobin 31.6 pg (27.0-31.2); Mean Corpuscular Volume 99.2 fl (80-94); Mean Platelet Volume 8.8 fl (7.4-10.4); Monocytes # 0.4 K/mm3 (0.1-1.0); Monocytes % 5.6 % (1.7-9.3); Neutrophils # 5.5 K/mm3 (1.8-7.8); Neutrophils % 74.5 % (37.0-80.0); Platelet Count 217 K/mm3 (142-424); Red Blood Count 3.83 M/mm3 (4.60-6.20); White Blood Count 7.4 K/mm3 (4.8-10.8)
[2021-04-28 16:03] LABS: INR 2.57 (0.9-1.1); Prothrombin Time 27.1 seconds (10.1-12.5)
[2021-04-28 16:43] LABS: Chloride 107 mmol/L (98-107); Sodium 139 mmol/L (136-145)
[2021-04-28 16:44] LABS: Potassium 4.8 mmoL/L (3.5-5.1)
[2021-04-28 16:46] LABS: Alanine Aminotransferase 19 U/L (12-78); Albumin Level 3.4 g/dl (3.5-5.0); Albumin/Globulin Ratio 1.4 (1.1-1.8); Alkaline Phosphatase 83 U/L (38-126); Anion Gap 9.8 mEq/L (5-15); Aspartate Amino Transferase 29 U/L (17-59); Bilirubin,Total 0.2 mg/dl (0.2-1.3); Blood Urea Nitrogen 31 mg/dl (9-20); Calcium 8.6 mg/dl (8.4-10.2); Carbon Dioxide 27 mmol/L (22.0-30.0); Chol/HDL Ratio 3.2 (1-3.5); Cholesterol 161 mg/dl (140-200); Estimated Glomerular Filt Rate 71 ml/min (>60); GFR (African American) 86 ML/MIN (>60); Globulin 2.4 g/dL (1.3-3.2); Glucose 96 mg/dl (74-100); HDL Cholesterol 51 mg/dl (40-60); Total Protein,Serum 5.8 g/dl (6.3-8.2); Triglycerides 153 mg/dl (30-150); VLDL Cholesterol 31 mg/dL (0-40)
[2021-04-28 16:58] LABS: Direct LDL Cholesterol 83.59 mg/dL (100-129)
[2021-04-28 17:47] LABS: Uric Acid 7.1 mg/dl (3.5-8.5)
== END ==
PROVIDERS: Visit Provider Nurse Practitioner Family
DX: Z00.00 Encounter for general adult medical examination without abnormal findings (principal); M10.061 Idiopathic gout, right knee; Z51.81 Encounter for therapeutic drug level monitoring; Z79.01 Long term (current) use of anticoagulants; I48.91 Unspecified atrial fibrillation; Z79.899 Other long term (current) drug therapy
CPT/HCPCS: 80053; 80061; 84550; 85025; 85610

== ENCOUNTER 2021-06-07 10:16 | Outpatient (CLI) | payer MEDICARE, SELFPAY ==
[2021-06-07 13:57] LABS: PHA INR Fingerstick 3.1 (0.9-1.1)
== END 2021-06-07 14:36 | disposition home or self-care (01) ==
LOC: ACC 10:17
PROVIDERS: PCP Internal Medicine Adolescent Medicine; Visit Provider Internal Medicine Adolescent Medicine
DX: Z51.81 Encounter for therapeutic drug level monitoring (principal); Z79.01 Long term (current) use of anticoagulants; I48.91 Unspecified atrial fibrillation
CPT/HCPCS: 85610; 99211; G0463

== ENCOUNTER 2021-08-08 15:48 | Emergency (ER) | payer MEDICARE, SELFPAY ==
[2021-08-08 15:49] VITALS: BP 163/80; PULSE 78; RESP 16; TEMP 37; O2SAT 98; BMI 28.1
--- NOTE | 2021-08-08 15:55 | PC.NURSE ---
at bedside and instructed pt to hold pressure on wound at this time
--- NOTE | 2021-08-08 16:00 | HMH.EDGENADL ---
ED Disposition Clinical Impression: Abrasion of lip Qualifiers: Encounter type: initial encounter Qualified Code(s): S00.511A - Abrasion of lip, initial encounter Disposition: Home, Self-Care Condition on Discharge: Fair Additional Instructions: Return to the emergency department immediately if you feel worse in any way. Follow-up with your primary care doctor as needed. Referrals: Kameron Owusu MD [Primary Care Provider] - - Critical Care Critical Care Time: No Attestation: On , the high probability of a clinically significant, sudden or life threatening deterioration of the following system(s) required my full and direct attention, intervention and personal management. The time I documented below is in addition to time spent performing reported procedures but includes the following listed in this critical care notation. Medical Decision Making - Randy Inquiry Pt receiving controlled substance: No Vital Signs: 08/08/21 15:49 Temperature 98.6 F Temperature Source Oral Pulse Rate [Right] 78 Respiratory Rate 16 Blood Pressure [Right Arm] 163/80 H Blood Pressure Mean [Right Arm] 107 Blood Pressure Source [Right Arm] Automatic Cuff Blood Pressure Position [Right Arm] Sitting 02 Sat by Pulse Oximetry 98 Oxygen Delivery Method Room Air Medical Decision Narrative: Initial therapy was with direct pressure. This was unsuccessful. The patient continued to bleed. After that a 2 x 2 that had been soaked with tranexamic acid was applied to the wound. This reduced the bleeding significantly. After that the wound was repaired with wound adhesive which successfully achieved hemostasis. The patient cannot be discharged in stable condition General Adult HPI - General Stated complaint: AO 08/08 cut to lip while shaving Time Seen by Provider: 08/08/21 16:00 Mode of Arrival: Ambulatory - History of Present Illness HPI narrative: The patient's presents to the emergency department complaining of bleeding from his lower lip after he cut himself shaving. He is on Coumadin for atrial fibrillation. - Related Data Home Medications Medication Instructions Recorded Confirmed dicyclomine 10 mg capsule 10 mg PO DAILY cap 07/02/18 05/23/21 finasteride 5 mg tablet 5 mg PO DAILY 07/02/18 05/23/21 furosemide 20 mg tablet 20 mg PO DAILY 07/02/18 05/23/21 tamsulosin 0.4 mg capsule 0.4 mg PO DAILY 07/02/18 05/23/21 warfarin 5 mg tablet 5 mg PO DIRECTED tab 07/02/18 05/23/21 amiodarone 100 mg tablet 200 mg PO DAILY tab 11/04/19 05/23/21 carvedilol 25 mg tablet 12.5 mg PO BID tab 11/04/19 05/23/21 omeprazole 20 mg capsule,delayed 40 mg PO DAILY PRN cap 05/04/20 05/23/21 release donepezil 10 mg tablet 20 mg PO DAILY tab 11/02/20 05/23/21 Previous Rx's Medication Instructions Recorded rosuvastatin 10 mg tablet See Rx Instructions .ROUTE 04/06/21 .COMPLEX #30 tab oxybutynin chloride 10 mg 10 mg PO DAILY #90 tab 05/26/21 tablet,extended release 24 hr Allergies Allergy/AdvReac Type Severity Reaction Status Date / Time nitroglycerin AdvReac Mild S-DROP IN Verified 05/23/21 11:00 B/P [facility] History - Hepatitis A Screen Drug use history?: No Attestation statement:: This patient has been screened for Hepatitis A risk factors. Medical History: Reports:: Atrial Fibrillation, Cancer, Congestive Heart Failure, Coronary Artery Disease, Hyperlipidemia, Hypertension, Internal Pacemaker Other Medical History: Reports: Arthritis Other Surgeries: Yes: No Previous Surgery, Cancer Surgery, Cardiac Surgery, Colonoscopy, Pacemaker, Other (cyst removal) Amputation: No Fractures: No Comment: prostate cancer on Eligard - Social History Smoking Status: Never smoker Alcohol Intake: current Alcohol Intake Frequency:: holidays/special occasions only Substance Use Type: denies use Occupational Status: retired, disabled Housing: house Household Members: none Family Hx:: No significant family history ROS
[2021-08-08 17:57] VITALS: BP 134/88; PULSE 70; RESP 16; TEMP 36.9; O2SAT 98
== END 2021-08-08 17:57 | disposition home or self-care (01) ==
PROVIDERS: Emergency Provider Emergency Medicine; PCP Internal Medicine Adolescent Medicine
DX: S00.511A Abrasion of lip, initial encounter (principal); W26.9XXA Contact with unspecified sharp object(s), initial encounter; Y92.019 Unspecified place in single-family (private) house as the place of occurrence of the external cause; I48.91 Unspecified atrial fibrillation; I25.10 Atherosclerotic heart disease of native coronary artery without angina pectoris; I10 Essential (primary) hypertension; E78.5 Hyperlipidemia, unspecified; Z95.0 Presence of cardiac pacemaker; Z79.899 Other long term (current) drug therapy
CPT/HCPCS: 12011; 99282

== ENCOUNTER → 2021-08-23 10:47 | Outpatient (CLI) | payer MEDICARE, SELFPAY ==
[2021-08-23 13:46] LABS: Prostate Specific Ag, Diagnost < 0.064 ng/ml (0.0-4.0)
== END ==
PROVIDERS: Visit Provider Urology
DX: C61 Malignant neoplasm of prostate (principal)
CPT/HCPCS: 36415; 84153

== ENCOUNTER → 2021-10-19 13:24 | Outpatient (CLI) | payer MEDICARE, SELFPAY ==
[2021-10-19 13:30] LABS: Coronavirus 19, PCR Not Detected (NotDetected); Influenza A, PCR Not Detected (NotDetected); Influenza B, PCR Not Detected (NotDetected)
== END ==
PROVIDERS: Physician Assistant; PCP Internal Medicine Adolescent Medicine; Visit Provider Internal Medicine
DX: Z95.0 Presence of cardiac pacemaker; Z01.812 Encounter for preprocedural laboratory examination; Z20.822 Contact with and (suspected) exposure to COVID-19; I48.92 Unspecified atrial flutter
CPT/HCPCS: C9803; U0003; U0005

== ENCOUNTER 2021-10-20 07:52 | Day surgery (SDC) | payer MEDICARE, SELFPAY ==
[2021-10-20 07:55] VITALS: BMI 30.8
--- NOTE | 2021-10-20 08:01 | CA_ITS ---
APPROVED REPORT EXAM: Comprehensive 2D, Doppler, and color-flow [facility] Consultant: Libia Thrasher CRT Ht: 5 ft 7 in Wt: 193lbs BSA: 1.99 BP: 135/74 mmHg Indications: Atrial Flutter, Fatigue, Hyperlipidemia, Hypertension/HDD, pacer,a fib poor u/s windows 2D Dimensions LVOT 2.12 cm (M/F) 1.5-2.5 M-Mode Dimensions RVDd 2.86 cm (0.9-2.6) LA Diam 4.76 cm (1.9-4.0) LVDd 5.82 cm (3.5-5.7) Ao Diam 4.24 cm (2.0-3.7) LVDs 4.86 cm (3.5-5.7) IVSd 1.67 cm (0.6-1.1) PWd 0.54 cm (0.6-1.1) EF (Teich) 34.10% FS 16.50% EDV (Teich) 167.90 mL TAPSE 1.62 (<1.7) ESV (Teich) 110.70 mL LV Diastology E Decel Time 93.00 (160-240 msec) E/A Ratio 1.72 MED E' 6.70 (< 7 cm/sec) MED A' 6.00 cm/s E'/MED E' Ratio 13.27 (>14) LAT E' 6.30 (<10 cm/sec) LAT A' 5.20 cm/s E/LAT E' Ratio 14.11 (>14) Aortic Valve LVOT Max 123.00 (70-110 cm/s) LVOT VTI 21.40 cm AoV Peak Shar. 156.00 (50-130 cm/s) AI PHT 483.00 ms AO Peak GR. 9.90 mmHg AO Mean GR. 5.90 (<5 mmHg) AO VTI 28.61 (18-25 cm) DESI (VTI) 2.64 (2.5-4.5 cm2) Mitral Valve MV E Max Shar. 89.00 (40-130 cm/s) MV A Velocity 52.00 (40-130 cm/s) E/A Ratio 1.72 MV Decel. Time 93.00 (160-240 ms) MV PHT 27.00 ms Pulmonary Valve PV Peak Velocity 124.00 (50-150 cm/s) Tricuspid Valve TR P. Velocity 239.00 cm/s RAP Estimate 10.00 mmHg RVSP 32.90 mmHg Left Ventricle Technically difficult study because of the patient factors and poor acoustic windows. Left atrium is mildly enlarged, left ventricle is normal size mild concentric left ventricular hypertrophy, estimated ejection fraction is probably 50% with no obvious regional wall motion abnormality in the obtained views. A repeat study with Definity contrast is recommended. If clinically indicated Right Ventricle Right atrium and right ventricle are mildly enlarged with normal contractility, pacemaker lead seen in right atrium and right ventricle. Aortic Valve Aortic valve is thickened and calcified without Doppler evidence of aortic stenosis, there is mild aortic insufficiency. Mitral Valve Mitral valve is grossly normal, there is mild mitral regurgitation. Tricuspid Valve Tricuspid valve is grossly normal, there is mild tricuspid regurgitation, tricuspid regurgitation jet velocity is inadequate for calculation of the right ventricular systolic pressure. Pulmonic Valve Pulmonic valve is poorly visualized. Great Vessels Aortic root is normal size. Inferior vena cava is poorly visualized. Pericardium No significant pericardial effusion noted. Conclusion 1. Technically difficult study because of the patient factors and poor acoustic windows. 2. Biatrial normal, normal left ventricular size, ejection fraction is probably 50% with no obvious regional wall motion abnormality although endocardial cells are very poorly visualized. Diastolic parameters are inconclusive. 3. Mildly enlarged right ventricle with normal contractility. Pacemaker lead seen in right ventricle. 4. Mild mitral and tricuspid regurgitation. 5. No significant pericardial effusion noted. 6. Inferior vena cava is poorly visualized. Electronically signed by : Colton Milan MD 10/21/2021 16:18:09
[2021-10-20 08:53] VITALS: BP 151/94; PULSE 70; RESP 18; O2SAT 100
[2021-10-20 09:10] VITALS: BP 88/56; PULSE 72; RESP 18; O2SAT 95
--- NOTE | 2021-10-20 09:14 | ECG_ITS ---
APPROVED REPORT Exam: Resting ECG HR:69 bpm ECG Measurements Heart Rate 69 AXES NC 263 P 130 QRSd 215 QRS -86 QT 527 T 80 QTc 547 Conclusion ELECTRONIC ATRIAL PACEMAKER ELECTRONIC VENTRICULAR PACEMAKER ABNORMAL RHYTHM ECG UNCONFIRMED REPORT Electronically signed by : Kameron Owusu MD 10/21/2021 15:36:40
[2021-10-20 09:25] VITALS: BP 91/60; PULSE 72; RESP 18; O2SAT 96
[2021-10-20 09:45] VITALS: BP 138/87; PULSE 72; RESP 18; O2SAT 99
[2021-10-20 10:10] VITALS: BP 135/72; PULSE 75; RESP 18; O2SAT 97
--- NOTE | 2021-10-20 11:15 | SUR.PHASEII ---
Patient left a set of house keys in room. Called patients . She stated please leave keys at registration desk and they will try to pick them up tomorrow.
--- NOTE | 2021-10-20 12:18 | P.PCN_ITS ---
[facility] Cardioversion Date: 10/20/21 Provider:: GRECIA Doty Procedure Performed:: Synchronized electrical cardioversion Diagnosis:: Atrial flutter Procedure Summary:: Patient was brought to the cardiac Chief Digital Media Officer as an outpatient. After informed consent was obtained, anesthesia provided sedation the patient was given a single synchronized 200 J shock which cardioverted him from atrial flutter to sinus rhythm with dual-chamber pacing noted on EKG afterwards. Complications:: None Conculsion:: Successful electrical cardioversion from atrial flutter to sinus rhythm with subsequent dual-chamber pacing.
== END 2021-10-20 10:12 | disposition home or self-care (01) ==
LOC: CATHLAB 07:54
PROVIDERS: PCP Internal Medicine Adolescent Medicine; Visit Provider Internal Medicine
DX: R94.31 Abnormal electrocardiogram [ECG] [EKG] (principal); I48.92 Unspecified atrial flutter; I48.91 Unspecified atrial fibrillation; I11.0 Hypertensive heart disease with heart failure; I50.9 Heart failure, unspecified; I25.10 Atherosclerotic heart disease of native coronary artery without angina pectoris; Z95.0 Presence of cardiac pacemaker; Z79.899 Other long term (current) drug therapy
CPT/HCPCS: 92960; 93005; 93306

== ENCOUNTER → 2021-10-27 10:54 | Outpatient (CLI) | payer MEDICARE, SELFPAY ==
--- NOTE | 2021-10-27 11:04 | XR_ITS ---
FINAL REPORT CLINICAL HISTORY: on amiodarone COMPARISON: November 02, 2020 FINDINGS: PA and lateral views of the chest were obtained. There is no change in a left subclavian pacemaker. The cardiac and mediastinal silhouettes are within normal limits. The lungs are clear. There is no pleural effusion or pneumothorax. No acute osseous abnormality is identified. IMPRESSION: No radiographic evidence of acute cardiac or pulmonary disease. Reviewed, Interpreted and Dictated by Karen Acuña MD Transcribed by Gwen Morin Authenticated and [facility]
[2021-10-27 13:17] LABS: Alanine Aminotransferase 17 U/L (12-78); Albumin Level 4.1 g/dl (3.5-5.0); Alkaline Phosphatase 70 U/L (38-126); Aspartate Amino Transferase 28 U/L (17-59); Bilirubin,Direct 0.4 mg/dl (0.0-0.4); Bilirubin,Indirect 0.1 mg/dL (0.0-0.9); Bilirubin,Total 0.5 mg/dl (0.2-1.3); Bilirubin,Unconjugated 0.1 mg/dL (0.0-1.1); Total Protein,Serum 6.7 g/dl (6.3-8.2)
[2021-10-27 13:49] LABS: Thyroid Stimulating Hormone 1.55 uIU/mL (0.465-4.68)
== END ==
PROVIDERS: PCP Internal Medicine Adolescent Medicine; Visit Provider Nurse Practitioner
DX: I10 Essential (primary) hypertension (principal); R26.89 Other abnormalities of gait and mobility; R41.3 Other amnesia; Z79.01 Long term (current) use of anticoagulants; Z79.899 Other long term (current) drug therapy; Z85.46 Personal history of malignant neoplasm of prostate; Z95.0 Presence of cardiac pacemaker
CPT/HCPCS: 36415; 71046; 80076; 84439; 84443

== ENCOUNTER 2021-11-29 08:00 | Outpatient (RCR) | payer MEDICARE, SELFPAY ==
--- NOTE | 2021-10-27 16:47 | HMH.PTOPEV ---
PT Outpatient Evaluation Rehab PT Outpatient Evaluation Start: 10/27/21 15:25 Freq: Status: Active Protocol: Document 10/27/21 15:25 PDEBRO (Rec: 10/27/21 16:47 PDESEROUX [id number]) Electronically Signed By Nithin Lim, LUH 10/27/21 15:25 Outpatient Therapy Subjective History Subjective History Pt. is a 86 year old male who presents to [facility] Out[facility] Therapy Services in [place] for the initial evaluation this date( 10/27/21) w/ c/o chronic and intermittent imbalance, gait deficits, and BLE hip/knee P! and weakness of insidious onset 6 months ago. Pt. c's/o increased P! in bilateral hips w/ increased activity including negotiating inclines /declines, stairs, uneven terrain, and longer ambulation distances walking his dog secondary to weakness pt. states. Pt. reports, I feel weak in my hips down to my knees. Pt. denies having dizziness w/ positional changes. Pt. reports BLE toe out and bilateral hip P! d/t weakness w/ activity lead to the imbalance and gait deficits. Pt. denies having any falls in the last 6 months , but states having to grab onto surfaces w/ LOB. Pt. reports being IND. w/ ADLs at home and not using an AD at this time, however, pt. reports thinking about using a cane here recently secondary to LOB. Current medications include Tamsulosin , Dicyclomine, Amiodarone, Finasteride, Furosemide, Carvedilol, Rosuvastatin, Donepezil, Oxybutynin, and Memantine. PMH includes Hypertension, Hyperlipidemia. Pt. denies history of cancer( self), denies history of diabetes, denies latex allergy
== END 2022-01-16 09:14 | disposition home or self-care (01) ==
LOC: PT.CARL 08:00
PROVIDERS: PCP Internal Medicine Adolescent Medicine; Visit Provider Family Medicine
DX: R26.89 Other abnormalities of gait and mobility (principal)
CPT/HCPCS: 97110; 97112; 97163; 97164

== ENCOUNTER 2021-11-30 08:59 | Outpatient (CLI) | payer MEDICARE, SELFPAY ==
[2021-11-30 11:05] LABS: PHA INR Fingerstick 2.6 (0.9-1.1)
== END 2021-11-30 11:09 ==
LOC: ACC 09:04
PROVIDERS: PCP Internal Medicine Adolescent Medicine; Visit Provider Internal Medicine Adolescent Medicine
DX: Z51.81 Encounter for therapeutic drug level monitoring (principal); Z79.01 Long term (current) use of anticoagulants; I48.91 Unspecified atrial fibrillation
CPT/HCPCS: 85610; 99211; G0463

== ENCOUNTER → 2021-12-22 08:57 | Outpatient (CLI) | payer MEDICARE, SELFPAY ==
--- NOTE | 2021-12-22 09:03 | XR_ITS ---
FINAL REPORT CLINICAL HISTORY: left hip pain FINDINGS: Left hip Three views were obtained. There is no acute fracture or dislocation. There is mild left hip joint space narrowing. No soft tissue abnormality is identified. IMPRESSION: No acute process. Reviewed, Interpreted and Dictated by Fidel Kerr MD Transcribed by Machelle Ortega Authenticated and [facility]
== END ==
PROVIDERS: PCP Internal Medicine Adolescent Medicine; Visit Provider Orthopaedic Surgery
DX: M25.552 Pain in left hip (principal)
CPT/HCPCS: 73502

== ENCOUNTER → 2022-01-31 14:15 | Outpatient (CLI) | payer MEDICARE, SELFPAY ==
[2022-01-31 19:58] LABS: Basophils # 0.1 K/mm3 (0-0.2); Basophils % 0.9 % (0.1-2.0); Eosinophils # 0.5 K/mm3 (0.0-0.4); Hematocrit 42.3 % (42.0-52.0); Hemoglobin 13.4 g/dL (14.1-18.0); Lymphocytes # 1.3 K/mm3 (0.7-4.5); Lymphocytes % 18.5 % (10-50); Mean Corpuscular HGB Conc 31.7 g/dL (31.8-35.4); Mean Corpuscular Hemoglobin 29.8 pg (27.0-31.2); Mean Corpuscular Volume 94.1 fl (80-94); Mean Platelet Volume 8.6 fl (7.4-10.4); Monocytes # 0.3 K/mm3 (0.1-1.0); Monocytes % 4.5 % (1.7-9.3); Neutrophils # 4.9 K/mm3 (1.8-7.8); Neutrophils % 69.1 % (37.0-80.0); Platelet Count 240 K/mm3 (142-424); Red Blood Count 4.49 M/mm3 (4.60-6.20); Red Cell Distribution Width 14.6 % (11.5-17.5); White Blood Count 7.2 K/mm3 (4.8-10.8)
[2022-01-31 20:22] LABS: Alanine Aminotransferase 19 U/L (12-78); Albumin/Globulin Ratio 1.6 (1.1-1.8); Alkaline Phosphatase 101 U/L (38-126); Anion Gap 13.3 mEq/L (5-15); Aspartate Amino Transferase 30 U/L (17-59); Bilirubin,Total 0.5 mg/dl (0.2-1.3); Blood Urea Nitrogen 18 mg/dl (9-20); Calcium 9.3 mg/dl (8.4-10.2); Carbon Dioxide 30 mmol/L (22.0-30.0); Chloride 101 mmol/L (98-107); Estimated Glomerular Filt Rate 57 ml/min (>60); GFR (African American) 69 ML/MIN (>60); Globulin 2.5 g/dL (1.3-3.2); Glucose 82 mg/dl (74-100); Potassium 4.3 mmoL/L (3.5-5.1); Sodium 140 mmol/L (136-145); Total Protein,Serum 6.5 g/dl (6.3-8.2)
[2022-01-31 20:38] LABS: Free T4 (Free Thyroxine) 1.92 ng/dl (0.78-2.19)
[2022-01-31 20:53] LABS: Thyroid Stimulating Hormone 0.93 uIU/mL (0.465-4.68)
== END ==
PROVIDERS: PCP Family Medicine; Visit Provider Family Medicine
DX: I10 Essential (primary) hypertension (principal); R53.83 Other fatigue
CPT/HCPCS: 80053; 84439; 84443; 85025

== ENCOUNTER → 2022-02-14 06:09 | Outpatient (CLI) | payer MEDICARE, SELFPAY ==
[2022-02-14 18:25] LABS: INR 2.71 (0.9-1.1); Prothrombin Time 27.7 seconds (10.1-12.5)
[2022-02-14 18:38] LABS: Basophils % 0.6 % (0.1-2.0); Eosinophils # 0.5 K/mm3 (0.0-0.4); Hematocrit 43.4 % (42.0-52.0); Hemoglobin 13.5 g/dL (14.1-18.0); Lymphocytes # 1.1 K/mm3 (0.7-4.5); Lymphocytes % 17.4 % (10-50); Mean Corpuscular Hemoglobin 30.2 pg (27.0-31.2); Mean Corpuscular Volume 97.4 fl (80-94); Mean Platelet Volume 8.8 fl (7.4-10.4); Monocytes # 0.3 K/mm3 (0.1-1.0); Monocytes % 4.9 % (1.7-9.3); Neutrophils # 4.2 K/mm3 (1.8-7.8); Neutrophils % 69.1 % (37.0-80.0); Platelet Count 232 K/mm3 (142-424); Red Blood Count 4.45 M/mm3 (4.60-6.20); Red Cell Distribution Width 14.9 % (11.5-17.5)
== END ==
PROVIDERS: PCP Family Medicine; Visit Provider Family Medicine
DX: Z79.01 Long term (current) use of anticoagulants (principal); Z51.81 Encounter for therapeutic drug level monitoring; I48.91 Unspecified atrial fibrillation
CPT/HCPCS: 85025; 85610; 85730

== ENCOUNTER → 2022-03-09 13:45 | Outpatient (CLI) | payer MEDICARE, SELFPAY ==
--- NOTE | 2022-03-09 13:56 | XR_ITS ---
FINAL REPORT CLINICAL HISTORY: cough FINDINGS: Two views of the chest were obtained. A left subclavian pacemaker is present. There is cardiomegaly. The mediastinum is normal. There is mild right lung base atelectasis. There is a small left pleural effusion. There is no pneumothorax. There are postoperative changes along the right chest wall. The bony thorax is intact. IMPRESSION: Mild right lung base atelectasis and a small left pleural effusion. Reviewed, Interpreted and Dictated by Petr Fowler III, MD Transcribed by Gwen Morin Authenticated and [facility]
--- NOTE | 2022-03-09 13:56 | XR_ITS ---
FINAL REPORT CLINICAL HISTORY: rib pain FINDINGS: RIGHT RIBS Three views of the right ribs show a fracture of the right 9th lateral rib. There is no pneumothorax or pleural fluid collection. IMPRESSION: Right 9th lateral rib fracture. No pneumothorax. Reviewed, Interpreted and Dictated by Petr Fowler III, MD Transcribed by Gwen Morin Authenticated and . [facility]
== END ==
PROVIDERS: PCP Internal Medicine Adolescent Medicine; Visit Provider Nurse Practitioner Family
DX: R05.9 Cough, unspecified (principal); R07.81 Pleurodynia
CPT/HCPCS: 71046; 71100

== ENCOUNTER → 2022-03-31 10:54 | Outpatient (CLI) | payer MEDICARE, SELFPAY ==
--- NOTE | 2022-03-31 10:56 | CA_ITS ---
APPROVED REPORT EXAM: Comprehensive 2D, Doppler, and color-flow Echocardiogram Sales And Marketing Manager: Patricia Cheek RVT Ht: 5 ft 7 in Wt: 197lbs BSA: 2.01 BP: 155/80 mmHg Indications: SOA,A-FIB,PACER,HTN,FATIGUE,HLD TDS 2D Dimensions LVOT 2.10 cm (M/F) 1.5-2.5 LA Volume 107.20 mL LA Volume Index 53.33 mL/m2 (M/F) 16-34 M-Mode Dimensions RVDd 4.46 cm (0.9-2.6) LA Diam 5.74 cm (1.9-4.0) LVDd 5.53 cm (3.5-5.7) Ao Diam 3.70 cm (2.0-3.7) LVDs 4.15 cm (3.5-5.7) IVSd 1.07 cm (0.6-1.1) PWd 0.62 cm (0.6-1.1) EF (Teich) 48.80% FS 25.00% EDV (Teich) 149.30 mL TAPSE 1.35 (<1.7) ESV (Teich) 76.40 mL LV Diastology E Decel Time 87.00 (160-240 msec) E/A Ratio 2.0 MED E' 6.00 (< 7 cm/sec) E'/MED E' Ratio 16.90 (>14) LAT E' 5.50 (<10 cm/sec) E/LAT E' Ratio 18.44 (>14) Aortic Valve LVOT Max 81.00 (70-110 cm/s) LVOT VTI 16.09 cm AoV Peak Shar. 124.00 (50-130 cm/s) AO Peak GR. 6.10 mmHg AO Mean GR. 3.40 (<5 mmHg) AO VTI 24.82 (18-25 cm) DESI (VTI) 2.25 (2.5-4.5 cm2) Mitral Valve MV E Max Shar. 101.00 (40-130 cm/s) MV A Velocity 51.00 (40-130 cm/s) E/A Ratio 1.97 MV Decel. Time 87.00 (160-240 ms) MV PHT 25.00 ms Pulmonary Valve PV Peak Velocity 59.00 (50-150 cm/s) Tricuspid Valve TR P. Velocity 355.00 cm/s RAP Estimate 10.00 mmHg RVSP 60.30 mmHg Left Ventricle Left atrium is mildly enlarged, left ventricle is normal size mild concentric left ventricular hypertrophy, estimated ejection fraction approximately 40 to 45%, there is abnormal septal motion. Grade 2 diastolic dysfunction seen with tissue Doppler evidence of raise left atrial pressure. Right Ventricle Right atrium and right ventricle are mildly enlarged with normal contractility. Pacemaker lead seen in the right ventricle. Aortic Valve Aortic valve is thickened and calcified without aortic stenosis, there is mild aortic insufficiency. Mitral Valve Mitral valve has mitral annular calcification, leaflets are minimally thickened, there is mild mitral regurgitation. Tricuspid Valve Tricuspid valve is grossly normal, there is mild tricuspid regurgitation, calculated right ventricular systolic pressure is 42 mmHg. Pulmonic Valve Pulmonic valve is poorly visualized. Great Vessels Aortic root is normal size. Inferior vena cava is poorly visualized. Pericardium No significant pericardial effusion noted. Conclusion 1. Biatrial enlargement, normal left ventricular size, estimated ejection fraction 40 to 45%, there is abnormal septal motion. Grade 2 diastolic dysfunction seen with tissue Doppler evidence of raise left atrial pressure. 2. Mildly enlarged right ventricle with normal contractility. 3. Thickened and calcified aortic valve with mild aortic insufficiency. 4. Mild mitral and tricuspid regurgitation, calculated right ventricular systolic pressure is 42 mmHg. 5. No significant pericardial effusion noted. 6. Inferior vena cava is poorly visualized. Electronically signed by : Colton Milan MD 03/31/2022 13:58:08
== END ==
PROVIDERS: PCP Internal Medicine Adolescent Medicine; Visit Provider Physician Assistant
DX: I48.20 Chronic atrial fibrillation, unspecified (principal)
CPT/HCPCS: 93306

== ENCOUNTER 2022-04-06 08:54 | Day surgery (SDC) | payer MEDICARE, SELFPAY ==
[2022-04-06] VITALS (12 sets, daily range): BP systolic 118–171; BP diastolic 57–87; PULSE 59–73; RESP 18; TEMP 37; O2SAT 90–99; BMI 30.8
--- NOTE | 2022-04-06 07:04 | IR_ITS ---
APPROVED REPORT Patient Location: Outpatient PROCEDURES Selective coronary angiogram Drug-eluting stent deployment to the ostial proximal LAD Drug-eluting stent deployment to the first obtuse marginal artery off the dominant circumflex artery INDICATION Worsening angina pectoris, Coronary artery disease Informed consent was obtained prior to the procedure. COMPLICATIONS None Estimated Blood Loss: Less than 10 mls TECHNIQUE One percent lidocaine used to anesthetize the right anterior aspect of the wrist. The right radial artery was accessed via the Seldinger technique. A 6 Tuval[place] sheath was placed in the right radial artery. 2.5 mg of verapamil, 800 mcg of nitroglycerin, 1mg Lidocaine and 5000 U Heparin were given through the arterial sheath. The papa catheter as well as multiple other catheters were used to perform coronary angiogram. Multipurpose catheter AL-1 guide catheter were used to cannulate the right coronary artery which was never achieved. 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 Because of patient's advanced age with focal disease in the LAD and circumflex artery it was decided not to cannulate the right coronary artery as the contrast usage was becoming high and fear of knocking off and atheromatous plaque in the ascending aorta. A Poppa guide catheter was placed in the left main artery with a Choice PT extra-support wire being placed down the LAD. A 3.5 x 22 mm resolute William stent was deployed at 24 dhaval in the ostial proximal LAD reducing the stenosis to 0%. An additional Choice PT extra-support wire was placed in the circumflex artery where a 3.5 x 12 mm resolute William stent was deployed at 20 dhaval in the large first obtuse marginal artery. Excellent angiograph results were obtained achieving DESIRAE-3 flow before and after the procedure. At the end the procedure the apparatus was removed the sheath was removed good hemostasis was achieved and TR banding patient was transferred to the postop putting in stable condition ANGIOGRAPHIC RESULTS The left main artery Normal The left anterior descending artery Has an ostial proximal concentric at least 70% stenosis followed by a proximal stent which is widely patent with excellent distal transitioning. The mid LAD then has an additional 30 to 40% stenosis. Medium sized first diagonal artery originates from the LAD stent and is widely patent with DESIRAE-3 flow The circumflex artery Is a dominant vessel and has proximal 30% stenosis with a 30% stenosis in the first obtuse marginal artery and a concentric 70 to 80% stenosis in the large first obtuse marginal artery which bifurcates. The right coronary artery Nondominant was not cannulated however was widely patent and 2020 during angiography The [place] ventriculogram reveals Not performed The left ventricular end-diastolic pressure Not measured IMPRESSION Severe two-vessel coronary disease as described above with successful stenting of the ostial proximal LAD reducing the severe stenosis to 0% and successful stenting of the circumflex artery reducing the severe stenosis to 0% PLAN 1. Dual antiplatelet therapy 2. Interrogation of pacemaker to determine if patient is pacing greater than 40% of the time in the right ventricle and if ejection fraction is less than 50% he may be a candidate for cardiac resynchronization therapy. 3. Continue medical management to determine if coronary artery revascularization alleviate symptoms 4. Cardiac rehabilitation 5. Avoidance of tobacco products 6. LDL less than 55 to be achieved with high intensity statin 7. Risk factor modification
[2022-04-06 09:31] LABS: Basophils # 0.1 K/mm3 (0-0.2); Eosinophils # 0.3 K/mm3 (0.0-0.4); Eosinophils % 4.4 % (0.1-12.0); Hematocrit 41.9 % (42.0-52.0); Hemoglobin 13.5 g/dL (14.1-18.0); Lymphocytes # 1.1 K/mm3 (0.7-4.5); Lymphocytes % 14.6 % (10-50); Mean Corpuscular HGB Conc 32.1 g/dL (31.8-35.4); Mean Corpuscular Hemoglobin 30.7 pg (27.0-31.2); Mean Corpuscular Volume 95.6 fl (80-94); Mean Platelet Volume 8.8 fl (7.4-10.4); Monocytes # 0.6 K/mm3 (0.1-1.0); Monocytes % 7.7 % (1.7-9.3); Neutrophils # 5.4 K/mm3 (1.8-7.8); Neutrophils % 72.3 % (37.0-80.0); Platelet Count 249 K/mm3 (142-424); Red Blood Count 4.38 M/mm3 (4.60-6.20); Red Cell Distribution Width 14.5 % (11.5-17.5); White Blood Count 7.4 K/mm3 (4.8-10.8)
[2022-04-06 09:38] LABS: Chloride 101 mmol/L (98-107); Potassium 4.4 mmoL/L (3.5-5.1); Sodium 139 mmol/L (136-145)
[2022-04-06 09:41] LABS: Anion Gap 11.4 mEq/L (5-15); Blood Urea Nitrogen 21 mg/dl (9-20); Calcium 8.6 mg/dl (8.4-10.2); Carbon Dioxide 31 mmol/L (22.0-30.0); Creatinine Clearance Estimated 60 mL/min (50-200); Estimated Glomerular Filt Rate 63 ml/min (>60); GFR (African American) 77 ML/MIN (>60); Glucose 126 mg/dl (74-100)
[2022-04-06 09:44] LABS: INR 1.63 (0.9-1.1); Prothrombin Time 17.1 seconds (10.1-12.5)
[2022-04-06 12:20] LABS: CATHL Activated Clotting Time > 400 SEC (74-125)
--- NOTE | 2022-04-06 15:05 | P.CONPHA_ITS ---
PHA Borough Coordinator Discharge Med Rapier Insertion Loom Fixer: Hernando Rivera JR has received discharge medication counseling on the following medications: -ASPIRIN (ANTI-PLATELET, DAILY, BLEED/BRUISE RISK, BLEED LOCATION CHANGES APPEARANCE, BUMP HEAD = GO TO ER) -PLAVIX (ANTI-PLATELET, DAILY, BLEED/BRUISE RISK, BLEED LOCATION CHANGES APPEARANCE, BUMP HEAD = GO TO ER) -CARVEDILOL (PATIENT ON PREVIOUSLY, NO QUESTIONS) -ROSUVASTATIN (PATIENT ON PREVIOUSLY, NO QUESTIONS) -WARFARIN (MEDICATION CONTINUED) -PER CARDIOLOGY, NO MARCOS/ARB BP WAS 139/77 AND HAS TRENDED LOW WHILE HERE.
== END 2022-04-06 15:29 | disposition home or self-care (01) ==
PROVIDERS: PCP Internal Medicine Adolescent Medicine; Visit Provider Internal Medicine
DX: I25.118 Atherosclerotic heart disease of native coronary artery with other forms of angina pectoris (principal); Z79.899 Other long term (current) drug therapy; Z79.01 Long term (current) use of anticoagulants; I48.20 Chronic atrial fibrillation, unspecified; I42.9 Cardiomyopathy, unspecified; Z95.0 Presence of cardiac pacemaker; I10 Essential (primary) hypertension; E78.5 Hyperlipidemia, unspecified
CPT/HCPCS: 36415; 80048; 85025; 85347; 85610; 92928; 99152; 99153; C1725; C1769; C1876; C9600; J1644; Q9967

== ENCOUNTER → 2022-04-12 11:53 | Outpatient (CLI) | payer MEDICARE, SELFPAY ==
[2022-04-12 12:20] LABS: Adenovirus,PCR Not Detected (NotDetected); Bordetella Pertussis Not Detected (NotDetected); Chlamydophila Pneumoniae, PCR Not Detected (NotDetected); Coronavirus 19, PCR Not Detected (NotDetected); Coronavirus 229E Not Detected (NotDetected); Coronavirus NL63 Not Detected (NotDetected); Coronavirus OC43 Not Detected (NotDetected); Coronovirus HKU1,PCR Not Detected (NotDetected); Human Metapneumovirus Not Detected (NotDetected); Influenza A, PCR Not Detected (NotDetected); Influenza AH1, 2009 Not Detected (NotDetected); Influenza AH1, PCR Not Detected (NotDetected); Influenza AH3,PCR Not Detected (NotDetected); Influenza B, PCR Not Detected (NotDetected); Mycoplasma Pneumoniae, PCR Not Detected (NotDetected); Parainfluenza 1, PCR Not Detected (NotDetected); Parainfluenza 2, PCR Not Detected (NotDetected); Parainfluenza 3, PCR Not Detected (NotDetected); Parainfluenza 4, PCR Not Detected (NotDetected); Respiratory Syncytial Virus Not Detected (NotDetected); Rhinovirus/Enterovirus Not Detected (NotDetected)
--- NOTE | 2022-04-12 12:39 | XR_ITS ---
FINAL REPORT CLINICAL HISTORY: cough, covid outpatient COMPARISON: 03/09/2022 FINDINGS: A single portable view of the chest was obtained. Left subclavian pacemaker is noted. The heart size is enlarged. The mediastinum is within normal limits. There is worsening bibasilar atelectasis or pneumonia. There is a small left effusion. There are postoperative changes in the right lateral chest wall. The bony thorax is intact. IMPRESSION: Worsening bibasilar atelectasis or pneumonia with small left effusion. Reviewed, Interpreted and Dictated by Petr Fowler III, MD Transcribed by Brielle Rolon Authenticated and [facility]
== END ==
PROVIDERS: PCP Internal Medicine Adolescent Medicine; Visit Provider Internal Medicine
DX: E78.2 Mixed hyperlipidemia (principal); I10 Essential (primary) hypertension; I42.9 Cardiomyopathy, unspecified; I48.20 Chronic atrial fibrillation, unspecified; R05.9 Cough, unspecified; R93.1 Abnormal findings on diagnostic imaging of heart and coronary circulation; R93.89 Abnormal findings on diagnostic imaging of other specified body structures; R94.31 Abnormal electrocardiogram [ECG] [EKG]; Z79.01 Long term (current) use of anticoagulants; Z79.899 Other long term (current) drug therapy; Z95.0 Presence of cardiac pacemaker; Z20.828 Contact with and (suspected) exposure to other viral communicable diseases
CPT/HCPCS: 71045; 87581; 87632; 87798; C9803; U0003; U0005

== ENCOUNTER 2022-04-19 08:35 | Day surgery (SDC) | payer MEDICARE, SELFPAY ==
[2022-04-19] VITALS (33 sets, daily range): BP systolic 82–149; BP diastolic 40–99; PULSE 60–81; RESP 7–24; TEMP 36.1; O2SAT 90–100; BMI 30.8
--- NOTE | 2022-04-19 | IR_ITS ---
APPROVED REPORT Patient Location: Outpatient Will Call Clerk: DORENE Wylie RT (R) PROCEDURES 1. Pocket Revision 2. Placement of left ventricular sensing pacing lead into the coronary sinus. 3. Permanent cardiac resynchronization therapy with ICD implantation/biventricular pacemaker. INDICATION Systolic Congestive Heart Failure, ejection <35%, Wide QRS >120ms, [place] Heart Assoication Class 3 Congestive Heart Failure Informed consent was obtained prior to the procedure. COMPLICATIONS None Estimated Blood Loss: Less than 10 ml TECHNIQUE 1% lidocaine with epinephrine used to anesthetize the left anterior aspect of the chest. Scalpel was used to make the initial cutaneous incision while electrocautery was used to dissect down into the fascia. The generator was removed from the existing pocket. Digital manipulation was required along with intermittent usage of scalpel in order to revise the pocket. The leads were removed from the old generator. Under fluoroscopic guidance the coronary sinus was cannulated and confirmed with an injection of contrast. An 0.014 wire was then placed distally in the inferior posterior segment of the left ventricle via the coronary sinus and the left ventricular lead was advanced. After achieving excellent thresholds and interrogation numbers the sheath was then peeled away and the lead was then secured into place using silk suture. Ancef was used to flush the pocket and the 3 leads were attached to the HEAD OF ADVERTISING-D generator. The generator was then secured into place by heavy silk suture. Monocryl was used to close the subcutaneous layers while bolivar were used to close the subcutaneous layers while bolivar were used to close the cutaneous layer. A pressure dressing was placed and the patient was transferred to the postop holding area in stable condition for postoperative care. INTERROGATION Generator Model number: VISIONIST X4 HEAD OF ADVERTISING-P, U228 Generator Serial number: [id number] Left Ventricular lead model number: ACUTIY X4 STRAIGHT, 4671 Left Ventricular lead serial number: [id number] Impedence: 1425 ohms Threshold: 0.5v@1.0ms Pacing Parameters: Mode: DDDR Base/Max Track:60 ppm / 130 ppm No diaphragmatic stimulation at 10 volts. IMPRESSION 1. Succesful pocket Revision 2. Succesful placement of left ventricular sensing pacing lead into the coronary sinus. 3. Succesful permanent cardiac resynchronization therapy with ICD implantation/biventricular pacemaker. PLAN 1. Post op wound care Electronically signed by : Sunny Baldwin MD 04/24/2022 09:41:36
[2022-04-19 08:58] LABS: Basophils % 0.4 % (0.1-2.0); Eosinophils # 0.1 K/mm3 (0.0-0.4); Eosinophils % 1.4 % (0.1-12.0); Hematocrit 45.3 % (42.0-52.0); Hemoglobin 14.2 g/dL (14.1-18.0); Lymphocytes # 1.1 K/mm3 (0.7-4.5); Lymphocytes % 13.4 % (10-50); Mean Corpuscular HGB Conc 31.3 g/dL (31.8-35.4); Mean Corpuscular Hemoglobin 30.1 pg (27.0-31.2); Mean Corpuscular Volume 96.1 fl (80-94); Monocytes # 0.3 K/mm3 (0.1-1.0); Neutrophils % 81.8 % (37.0-80.0); Platelet Count 305 K/mm3 (142-424); Red Blood Count 4.72 M/mm3 (4.60-6.20); Red Cell Distribution Width 14.6 % (11.5-17.5); White Blood Count 8.5 K/mm3 (4.8-10.8)
[2022-04-19 09:11] LABS: Anion Gap 9.1 mEq/L (5-15); Blood Urea Nitrogen 24 mg/dl (9-20); Calcium 8.7 mg/dl (8.4-10.2); Carbon Dioxide 31 mmol/L (22.0-30.0); Chloride 104 mmol/L (98-107); Creatinine Clearance Estimated 66 mL/min (50-200); Estimated Glomerular Filt Rate 80 ml/min (>60); GFR (African American) 97 ML/MIN (>60); Glucose 112 mg/dl (74-100); Potassium 4.1 mmoL/L (3.5-5.1); Sodium 140 mmol/L (136-145)
[2022-04-19 09:22] LABS: INR 1.85 (0.9-1.1); Prothrombin Time 19.3 seconds (10.1-12.5)
--- NOTE | 2022-04-19 10:53 | P.PN_ITS ---
[facility] Disclaimer: The information contained in this section may have been updated after the patient was seen, as this information can be updated by other users. Medical History (Updated 04/12/22 @ 15:22 by Krystal Fernandes APRN) Abnormal echocardiogram Abnormal EKG Abnormal ventricular wall motion Atrial fibrillation Cardiac pacemaker in situ Cardiomyopathy Cardiomyopathy Chest pain CHF (congestive heart failure) Coronary artery disease Cough Dyspnea HLD (hyperlipidemia) LV dysfunction NYHA class 2 and ACC/AHA stage C acute diastolic congestive heart failure Right bundle branch block (RBBB) SOB (shortness of breath) Warfarin anticoagulation Surgical History Deviated septum Sebaceous cyst of axilla Social History Smoking Status: Never smoker alcohol intake: never substance use type: denies use current occupational status: retired Travel in the last 8 weeks: None household members: spouse housing: house current occupational exposures/hazards: No caffeine: No [facility] Anesthesia Checklist Patient Identification Patient Identification: Arm Band Structural Data Admitted From: Home Planned Operative Procedure/s: Upgrade to Biventricular Pacemaker Consent for Planned Operative Procedure(s) Verified: Yes Verified Documents: Surgical Consent and History and Physical NPO Status Verified Time NPO: 00:00 Additional verifications Anesthesia Reactions: No Hx Blood Transfusions: No Blood Transfusion Reaction: No Airway Assessment C-Spine Mobility Assessed: Yes TMJ Mobility Assessed: Yes Dentition: Good Dentition Neurological Assessment Level of Consciousness: Awake and Alert Anesthesia Plan Anesthesia Risk discussed: Yes Anesthesia Plan: Verified ASA Class: III Anesthesia Type: MAC
--- NOTE | 2022-04-19 13:57 | SUR.OPER ---
Refer to merge procedure report for tar vitals.
--- NOTE | 2022-04-19 14:52 | XR_ITS ---
FINAL REPORT CLINICAL HISTORY: post pacemaker FINDINGS: A portable view of the chest was obtained. Comparison is made to a prior exam dated 04/12/2022. The previously seen pacemaker has been exchanged. There is borderline cardiomegaly. Bibasilar opacities are likely atelectasis. There may be small effusions. No pneumothorax.. IMPRESSION: Bibasilar opacities and possible small effusions.. Reviewed, Interpreted and Dictated by Karen Acuña MD Transcribed by Brielle Rolon Authenticated and [facility]
--- NOTE | 2022-04-19 15:41 | SUR.PHASEII ---
Post procedure patient devoloped rash and c/o itching, notified Dr Baldwin, new order bendaryl 50mg ivp given per order.
--- NOTE | 2022-04-19 15:50 | SUR.PHASEII ---
Notified Dr Barlow a 2nd time of patient being itchy and rash on his skin, stated to give 125mg of solumedrol. Pt VSS, no distress noted.
--- NOTE | 2022-04-19 15:54 | SUR.PHASEII ---
Dr Baldwin stated that if patient rash is not better to have the patient check into the office tomorrow or go to ED for immediate distress.
--- NOTE | 2022-04-19 16:08 | SUR.PHASEII ---
Dr Baldwin notified of prelim of chest xray and stated it was good, that the patient can be discharge
== END 2022-04-19 16:16 | disposition home or self-care (01) ==
PROVIDERS: PCP Internal Medicine Adolescent Medicine; Visit Provider Internal Medicine
DX: I42.8 Other cardiomyopathies (principal); Z79.01 Long term (current) use of anticoagulants; T82.111A Breakdown (mechanical) of cardiac pulse generator (battery), initial encounter; Z45.02 Encounter for adjustment and management of automatic implantable cardiac defibrillator; I50.32 Chronic diastolic (congestive) heart failure; I11.0 Hypertensive heart disease with heart failure
CPT/HCPCS: 33225; 33229; 36415; 71045; 80048; 85025; 85610; 86850; C1769; C1900; C2621; J2704; P9017

== ENCOUNTER → 2022-06-01 14:16 | Outpatient (CLI) | payer MEDICARE, SELFPAY ==
[2022-06-01 15:06] LABS: Alanine Aminotransferase 18 U/L (12-78); Albumin Level 4.1 g/dl (3.5-5.0); Alkaline Phosphatase 90 U/L (38-126); Anion Gap 8.6 mEq/L (5-15); Aspartate Amino Transferase 29 U/L (17-59); Bilirubin,Direct 0.2 mg/dl (0.0-0.4); Bilirubin,Indirect 0.3 mg/dL (0.0-0.9); Bilirubin,Total 0.5 mg/dl (0.2-1.3); Bilirubin,Unconjugated 0.3 mg/dL (0.0-1.1); Blood Urea Nitrogen 17 mg/dl (9-20); Carbon Dioxide 29 mmol/L (22.0-30.0); Chloride 105 mmol/L (98-107); Estimated Glomerular Filt Rate 71 ml/min (>60); GFR (African American) 86 ML/MIN (>60); Glucose 103 mg/dl (74-100); Potassium 4.6 mmoL/L (3.5-5.1); Sodium 138 mmol/L (136-145); Total Protein,Serum 6.7 g/dl (6.3-8.2)
[2022-06-01 15:24] LABS: Free Thyroxine Index 3.3 ug/dL (5.93-13.13); T4 (Thyroxine) 8.3 ug/dl (5.53-11.0); Triiodothryronine (T3) Uptake 40 % (23.5-40.5)
[2022-06-01 15:37] LABS: Thyroid Stimulating Hormone 1.25 uIU/mL (0.465-4.68)
== END ==
PROVIDERS: PCP Internal Medicine Adolescent Medicine; Visit Provider Physician Assistant
DX: E78.2 Mixed hyperlipidemia (principal); I10 Essential (primary) hypertension; I25.10 Atherosclerotic heart disease of native coronary artery without angina pectoris; I50.31 Acute diastolic (congestive) heart failure; I50.9 Heart failure, unspecified; R06.09 Other forms of dyspnea; Z79.899 Other long term (current) drug therapy; Z95.0 Presence of cardiac pacemaker
CPT/HCPCS: 36415; 80048; 80076; 84436; 84443; 84479

== ENCOUNTER → 2022-06-16 09:15 | Outpatient (CLI) | payer MEDICARE, SELFPAY ==
--- NOTE | 2022-06-16 09:15 | CT_ITS ---
FINAL REPORT CLINICAL HISTORY: HTN, abn renals FINDINGS: Thin section axial CT images of the abdomen, pelvis and lower extremities were obtained with contrast. Multiplanar reformatted images were also obtained and reviewed. ABDOMEN AND PELVIS: There is moderate vascular calcification. There is no abdominal aortic aneurysm or dissection. The celiac axis and proximal superior mesenteric artery are unremarkable. There is calcified plaque of the proximal renal arteries without significant stenosis. The inferior mesenteric artery is patent. There is no significant stenosis of the right common iliac artery or external right iliac artery. There is no significant stenosis of the left common iliac artery or external left iliac artery. The internal iliac arteries are patent. RIGHT LOWER EXTREMITY: There is no significant stenosis of the right common femoral or superficial femoral arteries. The right deep femoral artery is patent. The popliteal, anterior tibial, posterior tibial, and peroneal arteries are unopacified which may be due to timing of contrast bolus although distal occlusion is not excluded. LEFT LOWER EXTREMITY: There is no significant stenosis of the left common femoral or superficial femoral arteries. The left deep femoral artery is patent. The popliteal, anterior tibial, posterior tibial, and peroneal arteries are unopacified which may be due to timing of contrast bolus although distal occlusion is not excluded. IMPRESSION: No significant vascular disease. Reviewed, Interpreted and Dictated by Petr Fowler III, MD Transcribed by Machelle Ortega Authenticated and [facility]
--- NOTE | 2022-06-16 09:15 | CT_ITS ---
FINAL REPORT CLINICAL HISTORY: dizziness FINDINGS: Axial images of the head were obtained with and without contrast. Coronal reformatted images were also obtained. This study was performed with techniques to keep radiation doses as low as reasonably achievable (ALARA). Individualized dose reduction techniques using automated exposure control or adjustment of mA and/or kV according to the patient's size were employed. There is generalized age-appropriate atrophy. Periventricular low-attenuation areas are seen consistent with mild chronic ischemic changes. There is no evidence of intracranial hemorrhage or mass. There is no evidence of acute infarct. There is no evidence of shift of the midline structures. No skull abnormality is seen on the bone window images. There is no evidence of abnormal contrast enhancement. There are postoperative changes in the sinuses. There is widespread mild to moderate mucosal thickening. IMPRESSION: Atrophy and mild periventricular chronic ischemic changes. Widespread mild to moderate mucosal thickening. Reviewed, Interpreted and Dictated by Petr Fowler III, MD Transcribed by Machelle Ortega Authenticated and [facility]
--- NOTE | 2022-06-16 10:01 | CA_ITS ---
FINAL REPORT TECHNIQUE: Color Doppler, duplex Doppler and porter scale sonography of the bilateral neck arterial vasculature was performed. Velocities were measured in the carotid arteries. Stenosis evaluation based on the validated velocity criteria. CLINICAL HISTORY: dizziness, HTN FINDINGS: The peak systolic velocity of the right common carotid artery is 45 cm/s. The peak systolic velocity of the right internal carotid artery is 82 cm/s and end diastolic velocity 22 cm/s. The ICA/CCA ratio is 1.8. A mild amount of plaque is present. The right external carotid artery is patent. The right vertebral artery is patent with antegrade flow. The peak systolic velocity of the left common carotid artery is 74 cm/s. The peak systolic velocity of the left internal carotid artery is 98 cm/s and end diastolic velocity 19 cm/s. The ICA/CCA ratio is 1.3. A mild amount of plaque is present. The left external carotid artery is patent.The left vertebral artery is patent with antegrade flow. IMPRESSION: Less than 50% bilateral carotid stenoses. Bilateral patent vertebral arteries with antegrade flow. If indicated, CTA or MRA could further evaluate. Reviewed, Interpreted and Dictated by Petr Fowler III, MD Transcribed by Gwen Morin Authenticated and [facility]
== END ==
PROVIDERS: PCP Internal Medicine Adolescent Medicine; Visit Provider Physician Assistant
DX: E78.2 Mixed hyperlipidemia (principal); I25.10 Atherosclerotic heart disease of native coronary artery without angina pectoris; I42.9 Cardiomyopathy, unspecified; I50.31 Acute diastolic (congestive) heart failure; I50.9 Heart failure, unspecified; R05.1 Acute cough; R06.09 Other forms of dyspnea; Z95.0 Presence of cardiac pacemaker; R42 Dizziness and giddiness
CPT/HCPCS: 70470; 75635; 93880; Q9967

== ENCOUNTER → 2022-06-28 09:39 | Outpatient (CLI) | payer MEDICARE, SELFPAY ==
--- NOTE | 2022-06-28 09:43 | XR_ITS ---
FINAL REPORT CLINICAL HISTORY: neck pain FINDINGS: AP, lateral, and odontoid views of the cervical spine were obtained. The odontoid view is limited as the tip of the odontoid process is obscured by overlying soft tissue. The lateral masses of C1 and C2 are aligned. On the lateral view, there is no fracture or malalignment. There is advanced multilevel degenerative disc disease, most pronounced in the mid and lower cervical spine. Precervical soft tissues are within normal limits. IMPRESSION: Multilevel degenerative disc disease. Two views of the thoracic spine were obtained. There is very mild levoscoliosis. No fracture or subluxation is identified. There is multilevel degenerative disc disease. Impression: Multilevel degenerative disc disease. Three views of the lumbar spine were obtained. No fracture is identified. There is minimal grade 1 anterior spondylolisthesis of L4 on 5. There is multilevel degenerative disc disease, most pronounced at L4-5. Impression: Multilevel degenerative disc disease. Reviewed, Interpreted and Dictated by Karen Acuña MD Transcribed by Machelle Ortega Authenticated and [facility]
== END ==
PROVIDERS: PCP Family Medicine; Visit Provider Family Medicine
DX: M54.2 Cervicalgia (principal); M54.6 Pain in thoracic spine; M54.50 Low back pain, unspecified
CPT/HCPCS: 72084

== ENCOUNTER → 2022-07-24 23:28 | Outpatient (CLI) | payer MEDICARE, SELFPAY ==
[2022-07-24 17:37] LABS: INR 1.32 (0.9-1.1)
[2022-07-24 17:41] LABS: Basophils % 0.4 % (0.1-2.0); Eosinophils # 0.5 K/mm3 (0.0-0.4); Eosinophils % 6.9 % (0.1-12.0); Hematocrit 41.7 % (42.0-52.0); Hemoglobin 13.5 g/dL (14.1-18.0); Lymphocytes # 1.4 K/mm3 (0.7-4.5); Lymphocytes % 21.1 % (10-50); Mean Corpuscular HGB Conc 32.4 g/dL (31.8-35.4); Mean Corpuscular Hemoglobin 30.7 pg (27.0-31.2); Mean Corpuscular Volume 94.9 fl (80-94); Mean Platelet Volume 8.1 fl (7.4-10.4); Monocytes # 0.4 K/mm3 (0.1-1.0); Monocytes % 6.3 % (1.7-9.3); Neutrophils # 4.2 K/mm3 (1.8-7.8); Neutrophils % 65.2 % (37.0-80.0); Platelet Count 221 K/mm3 (142-424); Red Cell Distribution Width 14.8 % (11.5-17.5); White Blood Count 6.4 K/mm3 (4.8-10.8)
[2022-07-24 17:42] LABS: Alanine Aminotransferase 14 U/L (12-78); Albumin Level 3.6 g/dl (3.5-5.0); Albumin/Globulin Ratio 1.3 (1.1-1.8); Alkaline Phosphatase 78 U/L (38-126); Anion Gap 9.8 mEq/L (5-15); Aspartate Amino Transferase 23 U/L (17-59); Bilirubin,Total 0.4 mg/dl (0.2-1.3); Blood Urea Nitrogen 19 mg/dl (9-20); Calcium 8.9 mg/dl (8.4-10.2); Carbon Dioxide 29 mmol/L (22.0-30.0); Chloride 107 mmol/L (98-107); Estimated Glomerular Filt Rate 71 ml/min (>60); GFR (African American) 86 ML/MIN (>60); Globulin 2.7 g/dL (1.3-3.2); Glucose 93 mg/dl (74-100); Potassium 4.8 mmoL/L (3.5-5.1); Sodium 141 mmol/L (136-145); Total Protein,Serum 6.3 g/dl (6.3-8.2)
[2022-07-24 17:59] LABS: T4 (Thyroxine) 8.8 ug/dl (5.53-11.0)
[2022-07-24 18:12] LABS: Thyroid Stimulating Hormone 0.88 uIU/mL (0.465-4.68)
== END ==
PROVIDERS: PCP Family Medicine; Visit Provider Family Medicine
DX: R53.1 Weakness (principal); R35.1 Nocturia; I48.91 Unspecified atrial fibrillation; M79.671 Pain in right foot; M79.672 Pain in left foot; R53.83 Other fatigue
CPT/HCPCS: 80053; 84436; 84443; 85025; 85610; 87086

== ENCOUNTER → 2022-08-25 19:08 | Outpatient (CLI) | payer MEDICARE, SELFPAY ==
[2022-08-25 20:29] LABS: Prothrombin Time 16.8 seconds (10.1-12.5)
== END ==
PROVIDERS: PCP Family Medicine; Visit Provider Family Medicine
DX: I48.91 Unspecified atrial fibrillation (principal); M79.671 Pain in right foot; M79.672 Pain in left foot; Z51.81 Encounter for therapeutic drug level monitoring; Z79.01 Long term (current) use of anticoagulants
CPT/HCPCS: 85610

== ENCOUNTER → 2022-09-29 17:01 | Outpatient (CLI) | payer MEDICARE, SELFPAY ==
[2022-09-29 16:39] LABS: INR 1.22 (0.9-1.1)
== END ==
PROVIDERS: Visit Provider Nurse Practitioner Family
DX: I48.91 Unspecified atrial fibrillation (principal); M79.671 Pain in right foot; M79.672 Pain in left foot; Z51.81 Encounter for therapeutic drug level monitoring; Z79.01 Long term (current) use of anticoagulants
CPT/HCPCS: 85610

== ENCOUNTER → 2022-10-20 17:09 | Outpatient (CLI) | payer MEDICARE, SELFPAY ==
[2022-10-20 17:03] LABS: INR 1.38 (0.9-1.1); Prothrombin Time 14.6 seconds (10.1-12.5)
== END ==
PROVIDERS: PCP Family Medicine; Visit Provider Nurse Practitioner Family
DX: Z79.01 Long term (current) use of anticoagulants (principal); Z51.81 Encounter for therapeutic drug level monitoring; I48.91 Unspecified atrial fibrillation
CPT/HCPCS: 85610

== ENCOUNTER → 2022-10-25 23:22 | Outpatient (CLI) | payer MEDICARE, SELFPAY ==
[2022-10-25 18:58] LABS: Alanine Aminotransferase 18 U/L (12-78); Albumin Level 3.8 g/dl (3.5-5.0); Albumin/Globulin Ratio 1.4 (1.1-1.8); Alkaline Phosphatase 93 U/L (38-126); Anion Gap 13.2 mEq/L (5-15); Aspartate Amino Transferase 24 U/L (17-59); Bilirubin,Total 0.2 mg/dl (0.2-1.3); Blood Urea Nitrogen 22 mg/dl (9-20); Carbon Dioxide 24 mmol/L (22.0-30.0); Chloride 108 mmol/L (98-107); Estimated Glomerular Filt Rate 80 ml/min (>60); GFR (African American) 96 ML/MIN (>60); Globulin 2.7 g/dL (1.3-3.2); Glucose 81 mg/dl (74-100); Potassium 5.2 mmoL/L (3.5-5.1); Sodium 140 mmol/L (136-145); Total Protein,Serum 6.5 g/dl (6.3-8.2)
[2022-10-25 19:23] LABS: Erythrocyte Sedimentation Rate 51 mm/hr (0-20)
[2022-10-27 12:12] LABS: RA Latex Turbid. <10.0 IU/mL (<14.0)
== END ==
PROVIDERS: PCP Family Medicine; Visit Provider Family Medicine
DX: I10 Essential (primary) hypertension (principal); M25.50 Pain in unspecified joint
CPT/HCPCS: 80053; 84550; 85651; 86431

== ENCOUNTER → 2022-11-22 23:13 | Outpatient (CLI) | payer MEDICARE, SELFPAY ==
[2022-11-22 17:13] LABS: INR 1.48 (0.9-1.1); Prothrombin Time 15.6 seconds (10.1-12.5)
== END ==
PROVIDERS: PCP Family Medicine; Visit Provider Family Medicine
DX: M79.671 Pain in right foot (principal); M79.672 Pain in left foot
CPT/HCPCS: 85610

== ENCOUNTER → 2022-12-06 23:32 | Outpatient (CLI) | payer MEDICARE, SELFPAY ==
[2022-12-06 16:36] LABS: INR 1.13 (0.9-1.1); Prothrombin Time 12.1 seconds (10.1-12.5)
== END ==
PROVIDERS: PCP Family Medicine; Visit Provider Family Medicine
DX: I48.91 Unspecified atrial fibrillation (principal); M79.671 Pain in right foot; M79.672 Pain in left foot; Z51.81 Encounter for therapeutic drug level monitoring; Z79.01 Long term (current) use of anticoagulants
CPT/HCPCS: 85610

== ENCOUNTER → 2022-12-28 16:58 | Outpatient (CLI) | payer MEDICARE, SELFPAY ==
[2022-12-28 17:08] LABS: INR 2.44 (0.9-1.1); Prothrombin Time 24.9 seconds (10.1-12.5)
== END ==
PROVIDERS: PCP Family Medicine; Visit Provider Family Medicine
DX: I48.91 Unspecified atrial fibrillation (principal); M79.671 Pain in right foot; M79.672 Pain in left foot
CPT/HCPCS: 85610

== ENCOUNTER → 2023-02-01 23:49 | Outpatient (CLI) | payer MEDICARE, SELFPAY ==
[2023-02-01 17:01] LABS: INR 2.08 (0.9-1.1); Prothrombin Time 21.4 seconds (10.1-12.5)
== END ==
PROVIDERS: PCP Family Medicine; Visit Provider Nurse Practitioner Family
DX: I48.91 Unspecified atrial fibrillation (principal); Z51.81 Encounter for therapeutic drug level monitoring; Z79.01 Long term (current) use of anticoagulants
CPT/HCPCS: 85610

== ENCOUNTER → 2023-03-06 23:17 | Outpatient (CLI) | payer MEDICARE, SELFPAY ==
[2023-03-06 17:35] LABS: INR 1.25 (0.9-1.1); Prothrombin Time 13.3 seconds (10.1-12.5)
[2023-03-06 18:39] LABS: Prostate Specific Ag Screen < 0.1 ng/ml (0.0-4.0)
== END ==
PROVIDERS: PCP Family Medicine; Visit Provider Family Medicine
DX: Z00.00 Encounter for general adult medical examination without abnormal findings (principal); Z12.5 Encounter for screening for malignant neoplasm of prostate; I48.91 Unspecified atrial fibrillation; M79.671 Pain in right foot; M79.672 Pain in left foot; Z51.81 Encounter for therapeutic drug level monitoring; Z79.01 Long term (current) use of anticoagulants
CPT/HCPCS: 85610; G0103

== ENCOUNTER → 2023-03-23 16:51 | Outpatient (CLI) | payer MEDICARE, SELFPAY ==
[2023-03-23 17:05] LABS: Prothrombin Time 19.7 seconds (10.1-12.5)
== END ==
PROVIDERS: PCP Family Medicine; Visit Provider Family Medicine
DX: I48.91 Unspecified atrial fibrillation (principal); M79.671 Pain in right foot; M79.672 Pain in left foot; Z79.01 Long term (current) use of anticoagulants
CPT/HCPCS: 85610

== ENCOUNTER 2023-04-11 16:42 | Outpatient (CLI) | payer MEDICARE, SELFPAY ==
[2023-04-11 17:06] LABS: INR 1.75 (0.9-1.1); Prothrombin Time 18.2 seconds (10.1-12.5)
== END 2023-04-11 23:59 ==
LOC: LAB.DROPOF 16:42
PROVIDERS: PCP Family Medicine; Visit Provider Family Medicine
DX: I48.91 Unspecified atrial fibrillation (principal); Z51.81 Encounter for therapeutic drug level monitoring; Z79.01 Long term (current) use of anticoagulants
CPT/HCPCS: 85610

== ENCOUNTER 2023-04-26 20:56 | Outpatient (CLI) | payer MEDICARE, SELFPAY ==
[2023-04-26 18:41] LABS: INR 1.35 (0.9-1.1); Prothrombin Time 14.3 seconds (10.1-12.5)
== END 2023-04-26 23:59 ==
LOC: LAB.DROPOF 20:58
PROVIDERS: PCP Family Medicine; Visit Provider Family Medicine
DX: I48.91 Unspecified atrial fibrillation (principal)
CPT/HCPCS: 85610

== ENCOUNTER 2023-05-11 16:28 | Outpatient (CLI) | payer MEDICARE, SELFPAY ==
[2023-05-11 16:56] LABS: INR 2.85 (0.9-1.1); Prothrombin Time 28.7 seconds (10.1-12.5)
== END 2023-05-11 23:59 ==
LOC: LAB.DROPOF 16:29
PROVIDERS: PCP Family Medicine; Visit Provider Family Medicine
DX: I48.91 Unspecified atrial fibrillation (principal); Z51.81 Encounter for therapeutic drug level monitoring; Z79.01 Long term (current) use of anticoagulants
CPT/HCPCS: 85610

== ENCOUNTER 2023-06-08 18:53 | Outpatient (CLI) | payer MEDICARE, SELFPAY ==
[2023-06-08 16:29] LABS: Prothrombin Time 31.1 seconds (10.1-12.5)
== END 2023-06-08 23:59 ==
LOC: LAB.DROPOF 18:54
PROVIDERS: PCP Family Medicine; Visit Provider Family Medicine
DX: I48.91 Unspecified atrial fibrillation (principal)
CPT/HCPCS: 85610

== ENCOUNTER 2023-07-12 18:00 | Outpatient (CLI) | payer MEDICARE, SELFPAY ==
[2023-07-12 16:44] LABS: Basophils # 0.1 K/mm3 (0-0.2); Basophils % 0.8 % (0.1-2.0); Eosinophils # 0.3 K/mm3 (0.0-0.4); Eosinophils % 4.6 % (0.1-12.0); Hematocrit 42.1 % (42.0-52.0); Hemoglobin 13.3 g/dL (14.1-18.0); Lymphocytes # 1.5 K/mm3 (0.7-4.5); Lymphocytes % 23.2 % (10-50); Mean Corpuscular HGB Conc 31.6 g/dL (31.8-35.4); Mean Corpuscular Volume 101.4 fl (80-94); Monocytes # 0.4 K/mm3 (0.1-1.0); Monocytes % 6.8 % (1.7-9.3); Neutrophils # 4.1 K/mm3 (1.8-7.8); Neutrophils % 64.5 % (37.0-80.0); Platelet Count 179 K/mm3 (142-424); Red Blood Count 4.15 M/mm3 (4.60-6.20); Red Cell Distribution Width 13.6 % (11.5-17.5); White Blood Count 6.4 K/mm3 (4.8-10.8)
[2023-07-12 16:58] LABS: INR 3.68 (0.9-1.1); Prothrombin Time 36.5 seconds (10.1-12.5)
[2023-07-12 17:07] LABS: Chloride 113 mmol/L (98-107); Potassium 4.3 mmoL/L (3.5-5.1); Sodium 144 mmol/L (136-145)
[2023-07-12 17:10] LABS: Alanine Aminotransferase 17 U/L (12-78); Albumin Level 3.6 g/dl (3.5-5.0); Albumin/Globulin Ratio 1.6 (1.1-1.8); Alkaline Phosphatase 79 U/L (38-126); Anion Gap 11.3 mEq/L (5-15); Aspartate Amino Transferase 27 U/L (17-59); Bilirubin,Total 0.4 mg/dl (0.2-1.3); Blood Urea Nitrogen 23 mg/dl (9-20); Carbon Dioxide 24 mmol/L (22.0-30.0); Estimated Glomerular Filt Rate 52 ml/min (>60); GFR (African American) 63 ML/MIN (>60); Globulin 2.2 g/dL (1.3-3.2); Glucose 86 mg/dl (74-100); Total Protein,Serum 5.8 g/dl (6.3-8.2)
[2023-07-12 17:42] LABS: Thyroid Stimulating Hormone 1.27 uIU/mL (0.465-4.68)
== END 2023-07-12 23:59 | disposition home or self-care (01) ==
LOC: LAB.DROPOF 07-13 09:02
PROVIDERS: PCP Family Medicine; Visit Provider Family Medicine
DX: I10 Essential (primary) hypertension (principal); I48.91 Unspecified atrial fibrillation; Z79.899 Other long term (current) drug therapy
CPT/HCPCS: 80053; 84443; 85025; 85610

== ENCOUNTER 2023-07-26 18:00 | Outpatient (CLI) | payer MEDICARE, SELFPAY ==
[2023-07-26 17:21] LABS: INR 3.46 (0.9-1.1); Prothrombin Time 34.5 seconds (10.1-12.5)
== END 2023-07-26 23:59 | disposition home or self-care (01) ==
LOC: LAB.DROPOF 07-30 08:34
PROVIDERS: PCP Family Medicine; Visit Provider Family Medicine
DX: I48.91 Unspecified atrial fibrillation (principal); Z51.81 Encounter for therapeutic drug level monitoring; Z79.01 Long term (current) use of anticoagulants
CPT/HCPCS: 85610

== ENCOUNTER 2023-08-28 11:30 | Outpatient (CLI) | payer MEDICARE, SELFPAY ==
[2023-08-28 18:12] LABS: INR 2.35 (0.9-1.1)
== END 2023-08-28 23:59 | disposition home or self-care (01) ==
LOC: LAB.DROPOF 08-29 11:31
PROVIDERS: PCP Family Medicine; Visit Provider Family Medicine
DX: I48.91 Unspecified atrial fibrillation (principal); Z51.81 Encounter for therapeutic drug level monitoring; Z79.01 Long term (current) use of anticoagulants
CPT/HCPCS: 85610

== ENCOUNTER 2023-09-13 13:41 | Outpatient (CLI) | payer MEDICARE, SELFPAY ==
--- NOTE | 2023-09-13 13:52 | XR_ITS ---
FINAL REPORT CLINICAL HISTORY: Lt shoulder pain fall COMPARISON: None FINDINGS: LEFT SHOULDER 3 views demonstrate no acute fracture or dislocation. There is mild degenerative change. The visualized bony structures are well aligned. No soft tissue abnormality is seen. IMPRESSION: No acute process. Reviewed, Interpreted and Dictated by Petr Fowler III, MD Transcribed by Brielle Rolon Authenticated and [facility]
== END 2023-09-13 23:59 | disposition home or self-care (01) ==
LOC: RAD 13:44
PROVIDERS: PCP Family Medicine; Visit Provider Orthopaedic Surgery
DX: M25.512 Pain in left shoulder (principal)
CPT/HCPCS: 73030

== ENCOUNTER 2023-09-20 15:04 | Emergency (ER) | payer MEDICARE, SELFPAY ==
[2023-09-20 15:04] VITALS: BP 137/71; PULSE 60; RESP 16; TEMP 36.6; O2SAT 96; BMI 29.7
--- NOTE | 2023-09-20 15:05 | PC.NURSE ---
DR DAIGLE AT BEDSIDE
--- NOTE | 2023-09-20 15:08 | ECG_ITS ---
APPROVED REPORT Exam: Resting ECG HR:60 bpm ECG Measurements Heart Rate 60 AXES ID 150 P 234 QRSd 173 QRS -79 QT 472 T 85 QTc 472 Conclusion ELECTRONIC ATRIAL PACEMAKER ELECTRONIC VENTRICULAR PACEMAKER ABNORMAL RHYTHM ECG UNCONFIRMED REPORT Electronically signed by : Saroj Raza, 09/20/2023 23:16:09
--- NOTE | 2023-09-20 15:19 | PC.NURSE ---
SPOKE WITH JENNIFER IN CARDIOLOGY, PT HAS [employer] SCIENTIFIC PACEMAKER
--- NOTE | 2023-09-20 15:27 | PC.NURSE ---
PACEMAKER INTERROGATED AT THIS TIME
[2023-09-20 15:32] LABS: Basophils # 0.1 K/mm3 (0-0.2); Basophils % 1.1 % (0.1-2.0); Eosinophils # 0.3 K/mm3 (0.0-0.4); Eosinophils % 3.7 % (0.1-12.0); Hematocrit 42.4 % (42.0-52.0); Hemoglobin 13.2 g/dL (14.1-18.0); Lymphocytes # 1.2 K/mm3 (0.7-4.5); Lymphocytes % 18.2 % (10-50); Mean Corpuscular HGB Conc 31.2 g/dL (31.8-35.4); Mean Corpuscular Hemoglobin 31.6 pg (27.0-31.2); Mean Corpuscular Volume 101.4 fl (80-94); Mean Platelet Volume 8.1 fl (7.4-10.4); Monocytes # 0.3 K/mm3 (0.1-1.0); Monocytes % 4.8 % (1.7-9.3); Neutrophils # 4.7 K/mm3 (1.8-7.8); Neutrophils % 72.2 % (37.0-80.0); Platelet Count 225 K/mm3 (142-424); Red Blood Count 4.18 M/mm3 (4.60-6.20); Red Cell Distribution Width 14.2 % (11.5-17.5); White Blood Count 6.6 K/mm3 (4.8-10.8)
--- NOTE | 2023-09-20 15:41 | ED_ITS ---
Discharge Plan Disposition Patient Disposition: Home, Self-Care Chief Complaint: Syncope Prescriptions Prescriptions: No Action furosemide 20 mg tablet 20 mg PO DAILY donepezil 10 mg tablet 20 mg PO DAILY carvedilol 3.125 mg tablet 6.25 mg PO BID irbesartan 75 mg tablet 75 mg PO BID Qty: 60 3RF memantine 10 mg tablet 10 mg PO BID tamsulosin [Flomax] 0.4 mg capsule 0.4 mg PO DAILY 90 Days Qty: 90 1RF oxybutynin chloride 10 mg tablet extended release 24hr 10 mg PO DAILY 90 Days Qty: 90 1RF methylprednisolone [Medrol (Westley)] 4 mg tablets,dose pack See Rx Instructions PO PER PKG DIR Qty: 21 0RF Rx Instructions: PO PER PKG DIR rosuvastatin 10 mg tablet See Rx Instructions .ROUTE .COMPLEX Qty: 90 3RF Rx Instructions: TAKE 1 TABLET BY MOUTH AT BEDTIME dicyclomine 10 mg capsule 10 mg PO DAILY 30 Days Qty: 30 1RF warfarin 3 mg tablet 6 mg PO DAILY Qty: 60 2RF Rx Instructions: Pt is taking 1 1/2 tablets on and Sunday and 1 tablet 5 days a week Referrals Follow up/Referrals: Gene Cordova MD [Primary Care Provider] - See instructions Activity Restrictions/Add. Instructions Additional Instructions/Restrictions: No emergent medical condition identified today. Your cardiac device was interrogated and there were no significant arrhythmias and it was appropriately paced 100% of the time. Your blood pressure has been normal here no evidence of any infection significant bleeding etc. Your INR was less than 2 please follow- up with your primary care doctor or your tool machine set up operator regarding titration of your Coumadin. Return to the emergency with any significant worsening symptoms. Clinical Impressions Clinical Impression: Near syncope, Transient hypotension, Subtherapeutic international normalized ratio (INR) Instructions Patient Instructions: DI for Syncope in Adults (Fainting), DI for Syncope in Children (Fainting) Discharge ED Provider: Mabel Raza General Adult HPI General Chief complaint: Syncope Stated complaint: WEAKNES Time Seen by Provider: 09/20/23 15:11 Mode of Arrival: EMS Source of Information: Patient Limitations: No Limitations Description of Symptoms (Recalled from ER Triage Doc. by RN): Patient reports a recent change in his blood pressure medicine. Reports having a near syncopal episode where he collapsed in the kitchen. Complaint of increased weakness. History of Present Illness HPI narrative: Patient is a 87-year-old male known history of LV dysfunction and cardiomyopathy who has a pacemaker presents today with near syncope and hypotension. States he was in his normal state of health feeling very well this morning and all of a sudden while he was up walking he felt lightheaded and almost passed out. When EMS were called they stated that his initial blood pressure was 70 systolic and is slowly progressively improved and route. He denies any chest pain shortness of breath abdominal pain melena or any other complaints. Has been drinking some alcohol earlier today. Denies any fevers or infectious symptoms. Is on Coumadin for atrial fibrillation is unsure what his last INR was. I spoke with his PA and cardiology and they state that they recently went up on his blood pressure medications however he has not had any symptoms preceding this transient episode and currently he is asymptomatic at the moment. Related Data Home Medications Medication Instructions Recorded Confirmed furosemide 20 mg tablet 20 mg PO DAILY Fluid 07/02/18 09/17/23 donepezil 10 mg tablet 20 mg PO DAILY . 11/02/20 09/17/23 memantine 10 mg tablet 10 mg PO BID memory 01/31/22 09/17/23 carvedilol 3.125 mg tablet 6.25 mg PO BID 09/10/23 09/17/23 Previous Rx's Medication Instructions Recorded rosuvastatin 10 mg tablet See Rx Instructions .Route 10/17/22 .COMPLEX Cholesterol #90 tabs dicyclomine 10 mg capsule 10 mg PO DAILY . 30 days #30 caps 08/24/23 warfarin 3 mg tablet 6 mg (2 x 3 mg) PO DAILY Heart 08/30/23 disease #60 tabs oxybutynin chloride 10 mg 10 mg PO DAILY . 90 days #90 tabs 09/03/23 tablet,extended release 24 hr tamsulosin 0.4 mg capsule (Flomax) 0.4 mg PO DAILY prostate 90 days 09/03/23 #90 caps irbesartan 75 mg tablet 75 mg PO BID #60 tabs 09/10/23 methylprednisolone 4 mg tablets in See Rx Instructions PO PER PKG DIR 09/13/23 a dose pack (Medrol (Westley)) #21 tabs Allergies Allergy/AdvReac Type Severity Reaction Status Date / Time nitroglycerin AdvReac Mild S-DROP IN Verified 09/17/23 14:13 B/P PFSH PFSH Disclaimer: The information contained in this section may have been updated after the patient was seen, as this information can be updated by other users. Medical History Biventricular cardiac pacemaker in situ Coronary artery disease Dyspnea NYHA class 2 and ACC/AHA stage C acute diastolic congestive heart failure CHF (congestive heart failure) Cardiomyopathy Cough Cardiac pacemaker in situ LV dysfunction Cardiomyopathy Abnormal echocardiogram Abnormal ventricular wall motion Abnormal EKG Chest pain Warfarin anticoagulation SOB (shortness of breath) HLD (hyperlipidemia) Atrial fibrillation Right bundle branch block (RBBB) Surgical History Deviated septum Sebaceous cyst of axilla Family History Father Coronary artery disease Heart attack Social History Smoking Status: Never smoker alcohol intake: never substance use type: denies use current occupational status: retired Travel in the last 8 weeks: None household members: spouse housing: house current occupational exposures/hazards: No caffeine: No ROS Obtained: Yes All systems reviewed & no additional complaints except as documented Physical Exam General General appearance: alert and in no apparent distress Respiratory Respiratory exam: Present normal lung sounds bilaterally; Absent respiratory distress Cardiovascular Cardiovascular exam: Present regular rate and normal rhythm Neurological Exam Neurological exam: Present alert, oriented X3, CN II-XII intact and normal gait; Absent motor sensory deficit Medical Decision Making Randy Inquiry Pt receiving controlled substance: No Vital Signs: 09/20/23 15:04 Temperature 97.9 F Temperature Source Oral Pulse Rate [Radial] 60 Respiratory Rate 16 Blood Pressure [Right Arm] 137/71 Blood Pressure Mean [Right Arm] 93 Blood Pressure Position [Right Arm] Sitting 02 Sat by Pulse Oximetry 96 Oxygen Delivery Method Room Air Lab Data Lab results reviewed: Yes I reviewed the patient's lab results. Lab Results 09/20/23 15:22: WBC 6.6, RBC 4.18 L, Hgb 13.2 L, Hct 42.4, MCV 101.4 H, MCH 31.6 H, MCHC 31.2 L, RDW 14.2, Plt Count 225, MPV 8.1, Neut % (Auto) 72.2, Lymph % (Auto) 18.2, [place] % (Auto) 4.8, Eos % (Auto) 3.7, Baso % (Auto) 1.1, Neut # (Auto) 4.7, Lymph # (Auto) 1.2, [place] # (Auto) 0.3, Eos # (Auto) 0.3, Baso # (Auto) 0.1, PT 17.4 H, INR 1.67 H, Sodium 134 L, Potassium 4.1, Chloride 106, C arbon Dioxide 19 L, Anion Gap 13.1, BUN 37 H, Creatinine 1.40 H, Estimated Creat Clear 44, Estimated GFR 48 L, Est GFR ( Amer) 58 L, Glucose 79, Calcium 8.9, Magnesium 2.1, Total Bilirubin 0.4, AST 25, ALT 19, Alkaline Phosphatase 59, Troponin I < 0.01, NT-Pro-B Natriuret Pep 335, Total Protein 6.5, Albumin 3.7, Globulin 2.8, Albumin/Globulin Ratio 1.3, Plasma/Serum Alcohol 29 H 09/20/23 15:22 09/20/23 15:22 Orders (Tests/Meds): ED MEDICATIONS Discontinued Medications Generic Name Dose Route Start Last Admin Trade Name Freq PRN Reason Stop Dose Admin Lactated Ringer's 500 mls @ 999 mls/hr 09/20/23 15:15 09/20/23 15:44 Lactated Ringer's 1000 Ml Bag IV 09/20/23 15:45 999 mls/hr .Q31M ANDIE Administration ORDERS Category Date Time Status BNP [NT Pro Brain Natriuretic Pep.] Stat Lab 09/20/23 15:22 Results CBC w/Auto Diff [Complete Blood Count Auto Diff] Stat Lab 09/20/23 15:22 Completed CMP [Comprehensive Metabolic Panel] Stat Lab 09/20/23 15:22 Results Ethanol [Ethyl Alcohol] Stat Lab 09/20/23 15:22 Completed Magnesium Stat Lab 09/20/23 15:22 Results PT INR [Prothrombin Time INR] Stat Lab 09/20/23 15:22 Completed TSH [Thyroid Stimulating Hormone] Stat Lab 09/20/23 15:22 Results Trop I [Troponin I] Stat Lab 09/20/23 15:22 Results Troponin I Q3H Lab 09/20/23 18:15 Ordered Troponin I Q3H Lab 09/20/23 21:15 Ordered ECG Data Tracing #1: I reviewed this ECG and interpreted as documented below: Ventricular rate of 60 electronic atrial and ventricular pacemaker Sgarbossa is negative cannot rule out ischemia Medical Decision Narrative: Well-appearing 87-year-old male presenting today with transient hypotension and near syncope symptoms have since resolved. No cardiopulmonary symptoms no abdominal pain no history of any type of bleeding. Will try to get his cardiac device interrogated. His blood pressure is normalized at this point. Will check basic labs give IV fluids and reassess. Device interrogated we spoke with [employer] rep there were no arrhythmias patient had a 100% BiV pacing. Labs unremarkable patient remains hemodynamically stable. Blood pressure currently 141/68 appropriately paced rhythms. No evidence of an emergent medical condition he will closely follow-up with cardiology. Reassessment of the patient at 406 he is asymptomatic pressure is normal I told him about his subtherapeutic INR and they recently went down on his medication and will follow back up with his clinic that is been managing his Coumadin. No indication for admission or further observation at this point. This is not consistent with ACS or other cardiopulmonary emergency infection bleeding etc. Critical Care Critical Care Time Critical Care Time: No
[2023-09-20 15:43] LABS: Chloride 106 mmol/L (98-107); Potassium 4.1 mmoL/L (3.5-5.1); Sodium 134 mmol/L (136-145)
[2023-09-20] MEDS: LACTATED RINGERS 1000ML 500 ML 999 ML IV (15:44)
[2023-09-20 15:45] LABS: Blood Urea Nitrogen 37 mg/dl (9-20)
[2023-09-20 15:46] LABS: Alanine Aminotransferase 19 U/L (12-78); Albumin Level 3.7 g/dl (3.5-5.0); Albumin/Globulin Ratio 1.3 (1.1-1.8); Alkaline Phosphatase 59 U/L (38-126); Anion Gap 13.1 mEq/L (5-15); Aspartate Amino Transferase 25 U/L (17-59); Bilirubin,Total 0.4 mg/dl (0.2-1.3); Calcium 8.9 mg/dl (8.4-10.2); Carbon Dioxide 19 mmol/L (22.0-30.0); Creatinine Clearance Estimated 44 mL/min (50-200); Estimated Glomerular Filt Rate 48 ml/min (>60); Ethyl Alcohol 29 mg/dl (0-10); GFR (African American) 58 ML/MIN (>60); Globulin 2.8 g/dL (1.3-3.2); Glucose 79 mg/dl (74-100); Magnesium 2.1 mg/dl (1.6-2.3); Total Protein,Serum 6.5 g/dl (6.3-8.2)
[2023-09-20 15:47] LABS: INR 1.67 (0.9-1.1); Prothrombin Time 17.4 seconds (10.1-12.5)
[2023-09-20 15:56] LABS: NT Pro Brain Natriuretic Pep. 335 pg/mL (0-450)
[2023-09-20 15:59] LABS: Troponin I < 0.01 ng/ml (0.00-0.034)
--- NOTE | 2023-09-20 16:03 | PC.NURSE ---
DR DAIGLE AT BEDSIDE
--- NOTE | 2023-09-20 16:10 | PC.NURSE ---
PT AMBULATORY IN [place]
[2023-09-20 16:15] VITALS: BP 154/64; PULSE 60; RESP 18; TEMP 36.6; O2SAT 97
[2023-09-20 16:17] LABS: Thyroid Stimulating Hormone 1.43 uIU/mL (0.465-4.68)
== END 2023-09-20 16:15 | disposition home or self-care (01) ==
PROVIDERS: Emergency Provider Student in an Organized Health Care Education/Training Program; PCP Family Medicine
DX: R55 Syncope and collapse (principal); I95.89 Other hypotension; R79.1 Abnormal coagulation profile; I48.0 Paroxysmal atrial fibrillation; Z79.01 Long term (current) use of anticoagulants; Z95.0 Presence of cardiac pacemaker; E78.5 Hyperlipidemia, unspecified; I11.0 Hypertensive heart disease with heart failure; I50.31 Acute diastolic (congestive) heart failure; I25.10 Atherosclerotic heart disease of native coronary artery without angina pectoris
CPT/HCPCS: 80053; 80320; 83735; 83880; 84443; 84484; 85025; 85610; 93005; 99284; G0480; J7120

== ENCOUNTER 2023-09-21 16:39 | Outpatient (CLI) | payer MEDICARE, SELFPAY ==
[2023-09-21 16:40] LABS: INR 1.73 (0.9-1.1)
== END 2023-09-21 23:59 | disposition home or self-care (01) ==
LOC: LAB.DROPOF 16:40
PROVIDERS: PCP Nurse Practitioner Family; Visit Provider Nurse Practitioner Family
DX: Z79.01 Long term (current) use of anticoagulants (principal)
CPT/HCPCS: 85610

== ENCOUNTER 2023-10-03 10:37 | Outpatient (CLI) | payer MEDICARE, SELFPAY ==
[2023-10-03 17:52] LABS: INR 4.84 (0.9-1.1)
[2023-10-03 18:36] LABS: Prothrombin Time 46.4 seconds (10.1-12.5)
== END 2023-10-03 23:59 | disposition home or self-care (01) ==
LOC: LAB.DROPOF 10-04 10:37
PROVIDERS: PCP Family Medicine; Visit Provider Family Medicine
DX: I48.91 Unspecified atrial fibrillation (principal)
CPT/HCPCS: 85610

== ENCOUNTER 2023-10-09 08:25 | Outpatient (CLI) | payer MEDICARE, SELFPAY ==
--- NOTE | 2023-10-09 08:27 | CA_ITS ---
FINAL REPORT TECHNIQUE: Grayscale, color Doppler and duplex Doppler ultrasound of the kidneys, aorta and renal arteries was performed. Multiple velocities were measured. CLINICAL HISTORY: HTN, Known plaquing of proximal renal artewries per CT. COMPARISON: None FINDINGS: Aorta velocity: 109 cm/sec Right kidney: 10.8 cm. No evidence of hydronephrosis or mass. Right intrarenal RI: 0.74-0.79 Right renal artery velocity: 331 cm/sec. Right RAR (Renal artery-Aortic Ratio): 3.03 Left Kidney: 13.8 cm. No evidence of hydronephrosis or mass. Left intrarenal RI: 0.74-0.78 Left renal artery velocity: 244 cm/sec. Left RAR (Renal Artery-Aortic Ratio): 2.23 IMPRESSION: Less than 60% bilateral renal artery stenosis. Recommend CT angiogram or catheter directed angiogram for further evaluation. Reviewed, Interpreted and Dictated by Petr Fowler III, MD Transcribed by Brielle Rolon Authenticated and [facility] [place]
--- NOTE | 2023-10-09 08:52 | US_ITS ---
FINAL REPORT CLINICAL HISTORY: I10 - Essential (primary) hypertension COMPARISON: None FINDINGS: RENAL ULTRASOUND Ultrasound images of the kidneys were obtained. Limited images of the liver parenchyma demonstrates normal echogenicity. The right kidney measures 10.7 cm in length. It is normal echogenicity. There is no hydronephrosis. The left kidney measures 10.7 cm in length. There is a 6.9 cm cyst. There is no hydronephrosis. IMPRESSION: 6.9 cm left renal cyst. Reviewed, Interpreted and Dictated by Petr Fowler III, MD Transcribed by Brielle Rolon Authenticated and [facility]
== END 2023-10-09 23:59 | disposition home or self-care (01) ==
LOC: RT 08:27
PROVIDERS: PCP Family Medicine; Visit Provider Physician Assistant
DX: I10 Essential (primary) hypertension (principal); I70.1 Atherosclerosis of renal artery; N28.1 Cyst of kidney, acquired
CPT/HCPCS: 76770; 93976

== ENCOUNTER 2023-11-06 13:38 | Outpatient (CLI) | payer MEDICARE, SELFPAY ==
[2023-11-06 16:41] LABS: INR 1.56 (0.9-1.1); Prothrombin Time 16.7 seconds (10.1-12.5)
== END 2023-11-06 23:59 | disposition home or self-care (01) ==
LOC: LAB.DROPOF 11-07 13:39
PROVIDERS: PCP Nurse Practitioner Family; Visit Provider Nurse Practitioner Family
DX: I48.91 Unspecified atrial fibrillation (principal)
CPT/HCPCS: 85610

== ENCOUNTER 2024-01-02 09:15 | Outpatient (CLI) | payer MEDICARE, SELFPAY ==
[2024-01-02 10:51] LABS: Thyroid Stimulating Hormone 1.79 uIU/mL (0.465-4.68)
[2024-01-02 11:26] LABS: Vitamin B12 576 pg/mL (239-931)
[2024-01-02 11:28] LABS: Folate 6.92 ng/mL
== END 2024-01-02 23:59 | disposition home or self-care (01) ==
LOC: LAB 09:16
PROVIDERS: PCP Family Medicine; Visit Provider Specialist
DX: R20.0 Anesthesia of skin (principal); R20.2 Paresthesia of skin; D75.89 Other specified diseases of blood and blood-forming organs; R41.3 Other amnesia; G56.92 Unspecified mononeuropathy of left upper limb
CPT/HCPCS: 82607; 82746; 84443

== ENCOUNTER 2024-01-03 16:26 | Outpatient (CLI) | payer MEDICARE, SELFPAY ==
[2024-01-03 16:41] LABS: INR 1.88 (0.9-1.1); Prothrombin Time 19.8 seconds (10.1-12.5)
== END 2024-01-03 23:59 | disposition home or self-care (01) ==
LOC: LAB.DROPOF 16:27
PROVIDERS: PCP Family Medicine; Visit Provider Family Medicine
DX: I48.91 Unspecified atrial fibrillation (principal)
CPT/HCPCS: 85610

== ENCOUNTER 2024-01-30 11:18 | Outpatient (CLI) | payer MEDICARE, SELFPAY ==
[2024-01-30 16:48] LABS: INR 2.73 (0.9-1.1); Prothrombin Time 27.7 seconds (10.1-12.5)
== END 2024-01-30 23:59 | disposition home or self-care (01) ==
LOC: LAB.DROPOF 01-31 11:22
PROVIDERS: PCP Family Medicine; Visit Provider Family Medicine
DX: I48.91 Unspecified atrial fibrillation (principal)
CPT/HCPCS: 85610

== ENCOUNTER 2024-03-05 15:20 | Outpatient (CLI) | payer MEDICARE, SELFPAY ==
[2024-03-05 17:00] LABS: INR 3.02 (0.9-1.1); Prothrombin Time 30.3 seconds (10.1-12.5)
== END 2024-03-05 23:59 | disposition home or self-care (01) ==
LOC: LAB.DROPOF 03-06 09:37
PROVIDERS: PCP Family Medicine; Visit Provider Family Medicine
DX: Z79.01 Long term (current) use of anticoagulants (principal)
CPT/HCPCS: 85610

== ENCOUNTER 2024-04-10 14:30 | Outpatient (CLI) | payer MEDICARE, SELFPAY ==
[2024-04-10 17:10] LABS: INR 1.34 (0.9-1.1); Prothrombin Time 14.6 seconds (10.1-12.5)
== END 2024-04-10 23:59 ==
LOC: LAB.DROPOF 04-11 10:08
PROVIDERS: PCP Family Medicine; Visit Provider Family Medicine
DX: I48.20 Chronic atrial fibrillation, unspecified (principal)
CPT/HCPCS: 85610

== ENCOUNTER 2024-05-22 14:03 | Outpatient (CLI) | payer MEDICARE, SELFPAY ==
[2024-05-22 14:26] LABS: Basophils % 0.6 % (0.1-2.0); Eosinophils # 0.2 K/mm3 (0.0-0.4); Eosinophils % 4.3 % (0.1-12.0); Hematocrit 38.4 % (42.0-52.0); Hemoglobin 12.2 g/dL (14.1-18.0); Lymphocytes # 0.9 K/mm3 (0.7-4.5); Lymphocytes % 16.3 % (10-50); Mean Corpuscular HGB Conc 31.8 g/dL (31.8-35.4); Mean Corpuscular Hemoglobin 30.4 pg (27.0-31.2); Mean Corpuscular Volume 95.8 fl (80-94); Mean Platelet Volume 9.5 fl (7.4-10.4); Monocytes # 0.4 K/mm3 (0.1-1.0); Monocytes % 7.8 % (1.7-9.3); Neutrophils # 3.8 K/mm3 (1.8-7.8); Neutrophils % 70.3 % (37.0-80.0); Platelet Count 174 K/mm3 (142-424); Red Blood Count 4.01 M/mm3 (4.60-6.20); Red Cell Distribution Width 13.7 % (11.5-17.5); White Blood Count 5.4 K/mm3 (4.8-10.8)
[2024-05-22 15:05] LABS: Free T4 (Free Thyroxine) 1.06 ng/dl (0.78-2.19)
[2024-05-22 16:16] LABS: Albumin Level 3.8 g/dl (3.5-5.0); Chloride 107 mmol/L (98-107)
[2024-05-22 16:17] LABS: Potassium 4.2 mmoL/L (3.5-5.1); Sodium 141 mmol/L (136-145)
[2024-05-22 16:19] LABS: Alanine Aminotransferase 22 U/L (12-78); Anion Gap 10.2 mEq/L (5-15); Aspartate Amino Transferase 28 U/L (17-59); Bilirubin,Unconjugated 0.4 mg/dL (0.0-1.1); Blood Urea Nitrogen 18 mg/dl (9-20); Carbon Dioxide 28 mmol/L (22.0-30.0); Estimated Glomerular Filt Rate 57 ml/min (>60); GFR (African American) 69 ML/MIN (>60); Total Protein,Serum 6.1 g/dl (6.3-8.2)
[2024-05-22 16:20] LABS: Alkaline Phosphatase 71 U/L (38-126); Bilirubin,Indirect 0.4 mg/dL (0.0-0.9); Bilirubin,Total 0.4 mg/dl (0.2-1.3); Calcium 9.1 mg/dl (8.4-10.2); Chol/HDL Ratio 2.5 (1-3.5); Cholesterol 175 mg/dl (140-200); Glucose 108 mg/dl (74-100); HDL Cholesterol 69 mg/dl (40-60); Magnesium 1.8 mg/dl (1.6-2.3); Triglycerides 226 mg/dl (30-150); VLDL Cholesterol 45 mg/dL (0-40)
[2024-05-22 16:31] LABS: Direct LDL Cholesterol 64.96 mg/dL (100-129)
[2024-05-22 16:51] LABS: Thyroid Stimulating Hormone 1.58 uIU/mL (0.465-4.68)
== END 2024-05-22 23:59 | disposition home or self-care (01) ==
LOC: LAB 14:04
PROVIDERS: PCP Family Medicine; Visit Provider Nurse Practitioner Family
DX: Z95.0 Presence of cardiac pacemaker (principal); I25.10 Atherosclerotic heart disease of native coronary artery without angina pectoris; I50.31 Acute diastolic (congestive) heart failure; I10 Essential (primary) hypertension; E78.2 Mixed hyperlipidemia; I48.20 Chronic atrial fibrillation, unspecified; R53.83 Other fatigue
CPT/HCPCS: 36415; 80048; 80061; 80076; 83735; 84439; 84443; 85025

== ENCOUNTER 2024-05-29 08:06 | Outpatient (CLI) | payer MEDICARE, SELFPAY ==
--- NOTE | 2024-05-29 08:10 | CA_ITS ---
APPROVED REPORT EXAM: Comprehensive 2D, Doppler, and color-flow Echocardiogram [employer] Monitoring Technician: Flora Castorena, AISSATOU, RVS Ht: 5 ft 7 in Wt: 193lbs BSA: 1.99 BP: 122/74 mmHg Indications: CHF, HFrEF, Afib, Pacer, HTN, HLD, Pacer, CAD, RBBB 2D Dimensions IVSd 1.47 cm M: 0.6-1.2 LVEF (Visual) 46.40 % PWd 1.46 cm M: 0.6 - 1.2 LA Volume 101.60 mL LVDd 4.91 cm M: 4.2 - 5.9 LA Volume Index [id number] mL/m2 (M/F) 16-34 LVDs 3.77 cm M: 2.5 - 4.0 Left Atrium 4.44 cm M: 3.0 - 4.0 M-Mode Dimensions LA Diam 5.69 cm (1.9-4.0) LVDd 5.39 cm (3.5-5.7) LVDs 4.21 cm (3.5-5.7) EF (Teich) 43.90% EPSs 1.21 cm FS 21.90% EDV (Teich) 140.70 mL TAPSE 2.12 (<1.7) ESV (Teich) 79.00 mL LV Diastology E Decel Time 240 (160-240 msec) E/A Ratio 0.83 MED A' 8.60 cm/s LAT A' 8.20 cm/s Aortic Valve DESI Index 0.99 cm2/m2 AoV Peak Shar. 161.0 (50-130 cm/s) AI PHT 406.00 ms AO Peak GR. 10.30 mmHg AO Mean GR. 4.70 (<5 mmHg) AO VTI 32.9 (18-25 cm) DESI (VTI) 2.01 (2.5-4.5 cm2) Mitral Valve MV A Velocity 81.0 (40-130 cm/s) E/A Ratio 0.83 Pulmonary Valve PV Peak Velocity 67.0 (50-150 cm/s) Tricuspid Valve TR P. Velocity 275.00 cm/s RAP Estimate 10.00 mmHg RVSP 40.30 mmHg Left Ventricle The left ventricle is normal size. The left ventricular systolic function is normal. The left ventricular ejection fraction is within the normal range. There is increased LV wall thickness. The septum is asynchronous. Diastolic function is indeterminate. LVEF is 55%. Right Ventricle Right ventricle is mildly dilated. The right ventricular systolic function is normal. Atria Left atrium is moderately dilated. Right atrium is moderately dilated. There is no Doppler evidence of interatrial shunt. Aortic Valve The aortic valve is mildly thickened. There is no aortic valvular stenosis. Mild aortic regurgitation. Mitral Valve The mitral valve leaflets are mildly thickened. No evidence of mitral valve stenosis. Mild mitral regurgitation. Tricuspid Valve Tricuspid valve is grossly normal in structure and function. Mild tricuspid regurgitation. RVSP is 25-30 mmHg. Pulmonic Valve The pulmonary valve is normal in structure. Trace pulmonic regurgitation. Great Vessels The aortic root is normal in size. IVC is normal in size and collapses >50% with inspiration. Pericardium There is no pericardial effusion. Other Information Study Quality: Fair Conclusion Normal biventricular systolic function. Mild RV dilation. Biatrial dilation. Mild AI, mild MR, mild TR. Electronically signed by : Dianne Manning MD 06/06/2024 00:59:13
[2024-05-29 11:03] LABS: Total Iron Binding Capacity 333 ug/dL (261-462)
[2024-05-29 11:32] LABS: Ferritin 102 ng/ml (17.9-464)
[2024-05-29 11:49] LABS: Iron 99 ug/dL (49-181); Lactate Dehydrogenase 245 U/L (313-618)
[2024-05-30 11:14] LABS: Haptoglobin 65 mg/dL (38-329)
== END 2024-05-29 23:59 | disposition home or self-care (01) ==
PROVIDERS: PCP Family Medicine; Visit Provider Internal Medicine Medical Oncology
DX: I50.31 Acute diastolic (congestive) heart failure (principal); Z95.0 Presence of cardiac pacemaker; I48.20 Chronic atrial fibrillation, unspecified; D64.9 Anemia, unspecified
CPT/HCPCS: 36415; 82728; 83010; 83540; 83550; 83615; 85044; 86880; 93306